=== PATIENT | female | born 1950 | race Caucasian/White ===

== ENCOUNTER 2020-01-07 07:48 | Outpatient (REF) | payer BC, MEDICARE, SELFPAY ==
[2020-01-07 11:45] LABS: Anion Gap 13 (12-20); Blood Urea Nitrogen 12 mg/dL (9-16); Carbon Dioxide 27 mmol/L (22-29); Chloride 105 mmol/L (96-108); Estimated Glomerular Filt Rate > 60; Glucose Random 89 mg/dL (60-115); Sodium 141 mmol/L (135-145)
== END 2020-01-07 07:49 | disposition home or self-care (01) ==
LOC: HO.HMGCLDS 07:48
PROVIDERS: PCP Internal Medicine; Visit Provider Internal Medicine
DX: I10 Essential (primary) hypertension (principal); G25.81 Restless legs syndrome; E78.9 Disorder of lipoprotein metabolism, unspecified; G47.9 Sleep disorder, unspecified
CPT/HCPCS: 80048

== ENCOUNTER 2020-01-22 07:37 | Outpatient (REF) | payer MEDICARE, SELFPAY ==
--- NOTE | 2020-01-22 07:40 | MM_ITS ---
EXAMINATION: MM SCREENING DIGITAL BREAST TOMOSYNTHESIS, BILATERAL CLINICAL INFORMATION: Screening. Asymptomatic. The lifetime risk of breast cancer based on the Tyrer-Cuzick Model is 3.9%. COMPARISON: Mammography: August 02, 2016 and studies dating back to January 03, 2003 TECHNIQUE: Digital breast tomosynthesis is performed in both the craniocaudal and mediolateral oblique views along with computer-aided detection (CAD). Synthesized 2D images are generated from the tomosynthesis. FINDINGS: The breasts are extremely dense, which lowers the sensitivity of mammography (ACR BI-RADS breast composition Category d). There are no significant masses, abnormal calcifications, or other abnormalities. There is multiplicity and bilaterality of stable calcifications. MM/MM tomosynthesis screening BI IMPRESSION: There are no significant changes from prior study. ASSESSMENT: BI-RADS 1: Negative RECOMMENDATION: Routine annual mammography screening. This patient's information was entered into a reminder system with a target due date for their next mammogram.
== END 2020-01-22 07:38 | disposition home or self-care (01) ==
LOC: HO.MAMMO 07:37
PROVIDERS: PCP Internal Medicine; Visit Provider Internal Medicine
DX: Z12.31 Encounter for screening mammogram for malignant neoplasm of breast (principal)
CPT/HCPCS: 77063; 77067

== ENCOUNTER 2020-07-30 08:44 | Outpatient (REF) | payer MEDICARE, SELFPAY ==
[2020-07-30 12:07] LABS: Alanine Aminotransferase 32 U/L (0-31); Albumin Level 4.6 g/dL (3.5-5.0); Alkaline Phosphatase 39 U/L (39-117); Anion Gap 15 (12-20); Aspartate Amino Transferase 21 U/L (5-31); Bilirubin Direct 0.3 mg/dL (0.0-0.5); Bilirubin Total 0.9 mg/dL (0.0-1.0); Blood Urea Nitrogen 24 mg/dL (9-16); Calcium 9.9 mg/dL (8.4-10.2); Carbon Dioxide 23 mmol/L (22-29); Chloride 104 mmol/L (96-108); Estimated Glomerular Filt Rate > 60; Glucose Random 115 mg/dL (60-115); Potassium 3.8 mmol/L (3.3-5.1); Sodium 138 mmol/L (135-145); Total Protein 7.4 g/dL (6.5-8.0)
[2020-07-31 06:51] LABS: LDL Cholesterol Direct 85 mg/dL (<100)
== END 2020-07-30 08:45 | disposition home or self-care (01) ==
LOC: HO.HMGCLDS 08:44
PROVIDERS: PCP Internal Medicine; Visit Provider Internal Medicine
DX: G25.81 Restless legs syndrome (principal); G47.9 Sleep disorder, unspecified; E78.9 Disorder of lipoprotein metabolism, unspecified; I10 Essential (primary) hypertension
CPT/HCPCS: 36415; 80048; 80076; 83721

== ENCOUNTER 2021-02-03 08:38 | Outpatient (REF) | payer MEDICARE, SELFPAY ==
[2021-02-03 11:48] LABS: MANUAL DIFF FLAG NO
[2021-02-03 11:53] LABS: Basophils Percent Auto 0.1 % (0-2); Eosinophils Absolute Auto 0.1 X10*3/uL (0.0-0.4); Eosinophils Percent Auto 1.6 % (0-4); Hematocrit 40.9 % (37.0-47.0); Hemoglobin 13.4 g/dl (12.0-16.0); Imm Gran Abs Auto 0.02 X10*3/uL (0.00-0.03); Imm Gran Pct Auto 0.3 % (0.0-0.4); Lymphocytes Percent Auto 28.9 % (20-40); Mean Corpuscular HGB Conc 32.8 g/dl (31.0-35.0); Mean Corpuscular Hemoglobin 29.5 pg (27.0-33.0); Mean Corpuscular Volume 90.1 fL (80.0-98.0); Mean Platelet Volume 11.5 fL (9.4-12.3); Monocytes Absolute Auto 0.6 X10*3/uL (0.1-1.2); Monocytes Percent Auto 7.9 % (2-11); Neutrophils Absolute Auto 4.3 x10*3/uL (2.0-8.3); Neutrophils Percent Auto 61.2 % (45-73); Platelet Count 209 X10*3/uL (160-400); Red Blood Count 4.54 X10*6/uL (4.20-5.50); Red Cell Distribution Width 13.3 % (11.0-16.0); White Blood Count 7.1 X10*3/uL (4.8-10.8)
[2021-02-03 12:29] LABS: Alanine Aminotransferase 23 U/L (0-31); Albumin Level 4.4 g/dL (3.5-5.0); Alkaline Phosphatase 40 U/L (39-117); Anion Gap 12 (12-20); Aspartate Amino Transferase 20 U/L (5-31); Bilirubin Total 1.1 mg/dL (0.0-1.0); Blood Urea Nitrogen 19 mg/dL (9-16); Calcium 9.2 mg/dL (8.4-10.2); Carbon Dioxide 24 mmol/L (22-29); Chloride 106 mmol/L (96-108); Estimated Glomerular Filt Rate > 60; Glucose Random 108 mg/dL (60-115); Potassium 4.1 mmol/L (3.3-5.1); Sodium 138 mmol/L (135-145); Total Protein 6.9 g/dL (6.5-8.0)
== END 2021-02-03 08:39 | disposition home or self-care (01) ==
LOC: HO.HMGCLDS 08:38
PROVIDERS: PCP Internal Medicine; Visit Provider Internal Medicine
DX: G47.9 Sleep disorder, unspecified (principal); E78.9 Disorder of lipoprotein metabolism, unspecified; G25.81 Restless legs syndrome; I10 Essential (primary) hypertension
CPT/HCPCS: 36415; 80053; 85025

== ENCOUNTER 2021-03-06 08:59 | Outpatient (REF) | payer MEDICARE, SELFPAY ==
--- NOTE | ~2021-03-06 | MM_ITS ---
EXAMINATION: BONE DENSITOMETRY CLINICAL INDICATION: Encounter for screening for osteoporosis. COMPARISON: Baseline BD dated 11/27/2009. TECHNIQUE: Using a [employer] DXA System (software version: 13.1) manufactured by [employer], dual-energy x-ray absorptiometry was performed of the lumbar spine and left hip. The images are of good technical quality. Summary results are attached. FINDINGS: AP SPINE L1-L4: Current: BMD 1.127 g/cm2, Z-score 0.4, T-score -0.4, normal, 8.2% increase from baseline (<5% change is not significant). Baseline: BMD 1.042 g/cm2. LEFT FEMUR, NECK: Current: BMD 0.854 g/cm2, Z-score -0.2, T-score -1.3, osteopenia. Baseline: BMD 0.942 g/cm2. LEFT FEMUR, TOTAL: Current: BMD 0.938 g/cm2, Z-score 0.3, T-score -0.6, normal, 6.2% decrease from baseline (<5% change is not significant). Baseline: BMD 1.000 g/cm2. IDENTIFIED RISK FACTORS: Secondary osteoporosis (early menopause). Hysterectomy. Bilateral oophorectomy. HISTORY OF FRACTURE: None listed. MEDICATIONS: None listed. MM/XR DEXA axial skeleton IMPRESSION: 1. DIAGNOSIS: Osteopenia based on the lowest T-score value of -1.3 in the femoral neck applying World Health Organization criteria. 2. 10-YEAR FRACTURE RISK PREDICTION, FRAX: Major osteoporotic fracture (clinical spine, forearm, hip or shoulder) 8.9%. Hip fracture 1.1%. 3. Treatment Recommendations: NOF guidelines recommend consideration for treatment in postmenopausal women and men age 50 and older presenting with the following: -A hip or vertebral (clinical or morphometric) fracture. -T-score less than or equal to -2.5 at the femoral neck or spine after appropriate evaluation to exclude secondary causes. -Low bone mass at the hip or spine and a 10-year fracture probability by FRAX of greater than or equal to 3% for hip fracture or greater than or equal to 20% for major osteoporotic fracture based on the [place] adapted WHO algorithm. 4. Other Recommendations: All treatment decisions require clinical judgment and consideration of individual patient factors, including patient preferences, comorbidities, previous drug use, risk factors not captured in the FRAX model (e.g. frailty, falls, vitamin D deficiency, increased bone turnover, interval significant decline in bone density) and possible under or overestimation of fracture risk by FRAX. Additional medical evaluation for secondary cause of low bone mineral density may be appropriate. FUTURE SCAN RECOMMENDATION: People with diagnosed cases of osteoporosis or at high risk for fracture should have regular bone mineral density tests. For patients eligible for Medicare, routine testing is allowed once every 2 years. The testing frequency can be increased to one year for patients who have rapidly progressing disease, those who are receiving or discontinuing medical therapy to restore bone mass, or have additional risk factors.
--- NOTE | ~2021-03-06 | MM_ITS ---
EXAMINATION: MM SCREENING DIGITAL BREAST TOMOSYNTHESIS, BILATERAL CLINICAL INFORMATION: Screening. Asymptomatic. The lifetime risk of breast cancer based on the Tyrer-Cuzick Model is 3%. COMPARISON: Mammography: 01/22/2020, 08/02/2016, 10/01/2013 TECHNIQUE: Digital breast tomosynthesis is performed in both the craniocaudal and mediolateral oblique views along with computer-aided detection (CAD). Synthesized 2D images are generated from the tomosynthesis. FINDINGS: The breasts are heterogeneously dense, which may obscure small masses (ACR BI-RADS breast composition Category c). Parenchymal pattern is similar to prior exams. No developing density or interval mass or architectural abnormality. There are scattered bilateral calcifications again seen, similar to previous exam. No significant changes. MM/MM tomosynthesis screening BI IMPRESSION: No mammographic evidence of malignancy. ASSESSMENT: BI-RADS 2: Benign RECOMMENDATION: Routine annual mammography screening. This patient's information was entered into a reminder system with a target due date for their next mammogram.
== END 2021-03-06 09:00 | disposition home or self-care (01) ==
LOC: HO.MAMMO 08:59
PROVIDERS: Visit Provider Internal Medicine
DX: Z12.31 Encounter for screening mammogram for malignant neoplasm of breast (principal); Z13.820 Encounter for screening for osteoporosis; M85.80 Other specified disorders of bone density and structure, unspecified site; Z78.0 Asymptomatic menopausal state; Z90.722 Acquired absence of ovaries, bilateral
CPT/HCPCS: 77063; 77067; 77080

== ENCOUNTER 2021-10-09 07:55 | Outpatient (REF) | payer MEDICARE, SELFPAY ==
[2021-10-09 12:24] LABS: Alanine Aminotransferase 30 U/L (0-31); Albumin Level 4.4 g/dL (3.5-5.0); Alkaline Phosphatase 37 U/L (39-117); Anion Gap 10 (12-20); Aspartate Amino Transferase 23 U/L (5-31); Bilirubin Total 0.9 mg/dL (0.0-1.0); Blood Urea Nitrogen 15 mg/dL (9-16); Calcium 9.8 mg/dL (8.4-10.2); Carbon Dioxide 27 mmol/L (22-29); Chloride 106 mmol/L (96-108); Estimated Glomerular Filt Rate > 60; Glucose Random 103 mg/dL (60-115); Potassium 4.2 mmol/L (3.3-5.1); Sodium 139 mmol/L (135-145); Total Protein 7.1 g/dL (6.5-8.0)
== END 2021-10-09 07:56 | disposition home or self-care (01) ==
LOC: HO.HMGCLDS 07:55
PROVIDERS: Visit Provider Internal Medicine
DX: I10 Essential (primary) hypertension (principal); E78.9 Disorder of lipoprotein metabolism, unspecified; G25.81 Restless legs syndrome; G47.9 Sleep disorder, unspecified; M85.80 Other specified disorders of bone density and structure, unspecified site; E66.09 Other obesity due to excess calories
CPT/HCPCS: 36415; 80053

== ENCOUNTER 2022-04-27 12:08 | Outpatient (REF) | payer MEDICARE, SELFPAY ==
--- NOTE | ~2022-04-27 | MM_ITS ---
EXAMINATION: MM SCREENING DIGITAL BREAST TOMOSYNTHESIS, BILATERAL CLINICAL INFORMATION: Screening. Asymptomatic. The lifetime risk of breast cancer based on the Tyrer-Cuzick Model is 2.5%. COMPARISON: Mammography: March 06, 2021 and studies dating back to October 01, 2013 TECHNIQUE: Digital breast tomosynthesis is performed in both the craniocaudal and mediolateral oblique views along with computer-aided detection (CAD). Synthesized 2D images are generated from the tomosynthesis. FINDINGS: The breasts are heterogeneously dense, which may obscure small masses (ACR BI-RADS breast composition Category c). There are no significant masses, abnormal calcifications, or other abnormalities. There is multiplicity and bilaterality of calcifications. MM/MM tomosynthesis screening BI IMPRESSION: No significant changes from prior exam. ASSESSMENT: BI-RADS 1: Negative RECOMMENDATION: Routine annual mammography screening. This patient's information was entered into a reminder system with a target due date for their next mammogram.
== END 2022-04-27 12:09 | disposition home or self-care (01) ==
LOC: HO.MAMMO 12:08
PROVIDERS: PCP Internal Medicine; Visit Provider Internal Medicine
DX: Z12.31 Encounter for screening mammogram for malignant neoplasm of breast (principal)
CPT/HCPCS: 77063; 77067

== ENCOUNTER 2022-06-11 10:55 | Outpatient (REF) | payer MEDICARE, SELFPAY ==
[2022-06-11 13:58] LABS: MANUAL DIFF FLAG NO
[2022-06-11 14:05] LABS: Basophils Percent Auto 0.3 % (0-2); Eosinophils Absolute Auto 0.1 X10*3/uL (0.0-0.4); Eosinophils Percent Auto 1.1 % (0-4); Hematocrit 40.6 % (37.0-47.0); Hemoglobin 13.5 g/dl (12.0-16.0); Imm Gran Abs Auto 0.02 X10*3/uL (0.00-0.03); Imm Gran Pct Auto 0.3 % (0.0-0.4); Lymphocytes Percent Auto 27.7 % (20-40); Mean Corpuscular HGB Conc 33.3 g/dl (31.0-35.0); Mean Corpuscular Hemoglobin 30.3 pg (27.0-33.0); Mean Corpuscular Volume 91.2 fL (80.0-98.0); Mean Platelet Volume 11.1 fL (9.4-12.3); Monocytes Absolute Auto 0.6 X10*3/uL (0.1-1.2); Monocytes Percent Auto 8.3 % (2-11); Neutrophils Absolute Auto 4.5 x10*3/uL (2.0-8.3); Neutrophils Percent Auto 62.3 % (45-73); Platelet Count 212 X10*3/uL (160-400); Red Blood Count 4.45 X10*6/uL (4.20-5.50); Red Cell Distribution Width 13.3 % (11.0-16.0); White Blood Count 7.2 X10*3/uL (4.8-10.8)
[2022-06-11 16:25] LABS: Alanine Aminotransferase 25 U/L (0-31); Albumin Level 4.4 g/dL (3.5-5.0); Alkaline Phosphatase 41 U/L (39-117); Anion Gap 14 (12-20); Aspartate Amino Transferase 19 U/L (5-31); Bilirubin Total 0.8 mg/dL (0.0-1.0); Blood Urea Nitrogen 22 mg/dL (9-16); Carbon Dioxide 24 mmol/L (22-29); Chloride 108 mmol/L (96-108); Estimated Glomerular Filt Rate > 60; Glucose Random 109 mg/dL (60-115); Sodium 142 mmol/L (135-145)
[2022-06-13 10:08] LABS: LDL Cholesterol Direct 91 mg/dL (<100)
== END 2022-06-11 10:56 | disposition home or self-care (01) ==
LOC: HO.HMGCLDS 10:55
PROVIDERS: PCP Internal Medicine; Visit Provider Internal Medicine
DX: Z00.01 Encounter for general adult medical examination with abnormal findings (principal); G25.81 Restless legs syndrome; G47.9 Sleep disorder, unspecified; I10 Essential (primary) hypertension; E78.9 Disorder of lipoprotein metabolism, unspecified
CPT/HCPCS: 36415; 80053; 83721; 85025

== ENCOUNTER 2022-11-03 12:40 | Outpatient (AMB) | payer MEDICARE, SELFPAY ==
[2022-11-03 12:42] VITALS: BP 128/68; PULSE 65; O2SAT 98; BMI 35.2
--- NOTE | 2022-11-03 12:42 | MHC.PC.OV ---
Vital Signs 11/03/22 12:42 Height 5 ft 4 in Weight 205 lb BMI 35.2 BP 128/68 Blood Pressure Location Lt brachial Position Sitting Pulse 65 Pulse Source Pulse Oximeter Pulse Oximetry (%) 98 Oxygen Delivery Method Room Air Intake Visit Reasons: 3 month f/u Allergies No Known Allergies [No Known Allergies*] Allergy (Verified 11/03/22 12:43) Medication List - Last Reconciled 11/03/22 by Murali Jaimes MD amlodipine 5 mg PO DAILY 90 days atenolol 100 mg PO DAILY 90 days losartan-hydrochlorothiazide 100-12.5 mg 1 tab PO DAILY 90 days pramipexole 0.5 mg PO BEDTIME simvastatin 20 mg PO BEDTIME zolpidem 10 mg PO BEDTIME PRN 90 days Tobacco use date assessed: 11/03/22 Fall risk assessment: No Falls in past year Last assessed Fall Risk: 11/03/22 Dental Screening Dental Screen Date: 11/03/22 Did you have a dental visit in the last 12 months?: Yes Did you have a dental problem in the last 6 months where you did not have access to dental care?: No Was dental information given to patient?: No HPI 3 month f/u HPI Details Patient is 72-year-old female came in today for her 3 month follow-up visit. Patient had labs done May of this year she is due for another set of labs Continue to take care of her significant other at home Difficulty sleeping:? Patient is currently taking Ambien at night, patient is complying with the treatment and comes in every 3 months for follow-up She wanted the script sent to a different pharmacy [facility] which I have Hypertension:? Patient is on losartan hydrochlorothiazide 100-12.5 and amlodipine 5 mg once a day.? Blood pressure is stable patient is tolerating medication. Restless leg syndrome:? Continue pramipexole 0.5 mg before bedtime Lipid disorder:? Patient is on simvastatin 20 mg and diet-controlled.? Osteopenia: Continue weight-bearing exercises BMI is elevated above 30 need to lose weight Follow-up 3 months [facility] Medical History Difficulty sleeping Hypertension, essential Lipid disorder Restless leg syndrome Surgical History History of appendectomy History of colonoscopy History of hysterectomy History of surgery Family History Father HTN (hypertension) Cancer Mother HTN (hypertension) Bone cancer Brother Skin cancer Maternal Grandfather No problems noted. Maternal Grandmother No problems noted. Paternal Grandfather No problems noted. Paternal Grandmother No problems noted. Sister No problems noted. Son No problems noted. Social History Housing: Condominium Patient Tobacco Use Status: Former Tobacco user (quit 50 years ago ) Years Smoked: 1 year e-Cigarette/Vaping Use: Never Used Current occupational status: retired Cognitive needs: No Hearing needs: No Vision needs: No Questionnaire Thrive Questionnaire Date Thrive assessed: 04/02/22 VON-7 AMB Questionnaire VON-7 Date VON - 7 assessed: 04/02/22 Source: Developed by Drs. Israel Gutierrez, Cayla Enriquez, Valdez Cowart and colleagues, with an educational joão from [employer]. Review of Systems Const Denies chills and Denies fever(s) ENT Denies epistaxis and Denies nasal discharge Card Denies chest pain Resp Denies chest congestion, Denies cough and Denies hemoptysis GI Denies diarrhea and Denies nausea Skin/Breast Denies rash Neuro Reports no additional complaints Psych Reports no additional complaints Endo Reports no additional complaints Physical exam (Primary Care) Vital Signs: Last Vital Signs Pulse 65 11/03/22 12:42 BP 128/68 11/03/22 12:42 Pulse Ox 98 11/03/22 12:42 Oxygen Delivery Method Room Air 11/03/22 12:42 BMI result Body Mass Index 35.2 Tobacco/Smoking Status: Tobacco use Status Tobacco use date assessed 11/03/22 11/03/22 12:43 Patient Tobacco Use Status Former Tobacco user (quit 50 11/03/22 12:43 years ago ) e-Cigarette/Vaping Use Never Used 11/03/22 12:43 Thrive Assessment: Date of Thrive Assessment Date Thrive assessed 04/02/22 11/03/22 12:43 Const General: cooperative, comfortable and no acute distress Orientation/consciousness: patient oriented x3 HENMT Head: Yes normocephalic Eyes General: appearance normal, both eyes and all related structures Neck Neck: Yes supple Resp Effort & Inspection: normal respiratory effort, no cough and no stridor Cardio Rhythm: regular rhythm Heart sounds: S1 normal heart sound present and S2 normal heart sound present Skin General skin exam: turgor normal Neuro General: patient oriented x3, tone normal and moves all extremities Extrem Right lower extremity: no edema Left lower extremity: no edema Assessment and Plan Assessment & Plan (1) Hypertension, essential: Code(s): I10 - Essential (primary) hypertension (2) Lipid disorder: Code(s): E78.9 - Disorder of lipoprotein metabolism, unspecified (3) Restless leg syndrome: Code(s): G25.81 - Restless legs syndrome (4) Difficulty sleeping: Code(s): G47.9 - Sleep disorder, unspecified (5) Obesity due to excess calories: Code(s): E66.09 - Other obesity due to excess calories (6) Osteopenia: Code(s): M85.80 - Other specified disorders of bone density and structure, unspecified site Plan Patient is 72-year-old female came in today for her 3 month follow-up visit. Patient had labs done May of this year she is due for another set of labs Continue to take care of her significant other at home Difficulty sleeping:? Patient is currently taking Ambien at night, patient is complying with the treatment and comes in every 3 months for follow-up She wanted the script sent to a different pharmacy today [facility] which I have Hypertension:? Patient is on losartan hydrochlorothiazide 100-12.5 and amlodipine 5 mg once a day.? Blood pressure is stable patient is tolerating medication. Restless leg syndrome:? Continue pramipexole 0.5 mg before bedtime Lipid disorder:? Patient is on simvastatin 20 mg and diet-controlled.? Osteopenia: Continue weight-bearing exercises BMI is elevated above 30 need to lose weight Follow-up 3 months Orders: Orders Comprehensive Met. Panel Today E66.09 - Other obesity due to excess calories, E78.9 - Disorder of lipoprotein metabolism, unspecified, G25.81 - Restless legs syndrome, G47.9 - Sleep disorder, unspecified, I10 - Essential (primary) hypertension, M85.80 - Other specified disorders of bone density and structure, unspecified site Medications: Refilled amlodipine 5 mg PO DAILY 90 days 90 tabs 0RF atenolol 100 mg PO DAILY 90 days 90 tabs 0RF losartan-hydrochlorothiazide 100-12.5 mg 1 tab PO DAILY 90 days 90 tabs 0RF pramipexole 0.5 mg PO BEDTIME 90 tabs 1RF simvastatin 20 mg PO BEDTIME 90 tabs 1RF zolpidem 10 mg PO BEDTIME 90 days PRN 90 tabs 0RF insomnia Coding Level of Care Code Est Pt Level 4 (42209) Diagnoses Hypertension, essential I10 Lipid disorder E78.9 Restless leg syndrome G25.81 Difficulty sleeping G47.9 Obesity due to excess calories E66.09 Osteopenia M85.80
== END 2022-11-03 13:37 | disposition home or self-care (01) ==
PROVIDERS: Visit Provider Internal Medicine
DX: I10 Essential (primary) hypertension (principal); E78.9 Disorder of lipoprotein metabolism, unspecified; G25.81 Restless legs syndrome; Z68.35 Body mass index [BMI] 35.0-35.9, adult; G47.9 Sleep disorder, unspecified; E66.09 Other obesity due to excess calories; M85.80 Other specified disorders of bone density and structure, unspecified site
CPT/HCPCS: 99214

== ENCOUNTER 2022-11-09 09:22 | Outpatient (REF) | payer MEDICARE, SELFPAY ==
[2022-11-09 12:11] LABS: Alanine Aminotransferase 32 U/L (0-31); Albumin Level 4.4 g/dL (3.5-5.0); Alkaline Phosphatase 40 U/L (39-117); Anion Gap 14 (12-20); Aspartate Amino Transferase 21 U/L (5-31); Bilirubin Total 0.7 mg/dL (0.0-1.0); Blood Urea Nitrogen 17 mg/dL (9-16); Calcium 9.8 mg/dL (8.4-10.2); Carbon Dioxide 24 mmol/L (22-29); Chloride 106 mmol/L (96-108); Estimated Glomerular Filt Rate > 60; Glucose Random 100 mg/dL (60-115); Potassium 3.6 mmol/L (3.3-5.1); Sodium 140 mmol/L (135-145); Total Protein 7.5 g/dL (6.5-8.0)
== END 2022-11-09 09:23 | disposition home or self-care (01) ==
LOC: HO.HMGCLDS 09:22
PROVIDERS: PCP Internal Medicine; Visit Provider Internal Medicine
DX: E66.09 Other obesity due to excess calories (principal); E78.9 Disorder of lipoprotein metabolism, unspecified; G25.81 Restless legs syndrome; G47.9 Sleep disorder, unspecified; I10 Essential (primary) hypertension; M85.80 Other specified disorders of bone density and structure, unspecified site
CPT/HCPCS: 36415; 80053

== ENCOUNTER 2023-01-28 10:37 | Outpatient (AMB) | payer MEDICARE, SELFPAY ==
[2023-01-28 10:49] VITALS: BP 142/86; PULSE 51; O2SAT 98; BMI 34.7
--- NOTE | 2023-01-28 10:49 | MHC.PC.OV ---
Vital Signs 01/28/23 10:49 Height 5 ft 4 in Weight 202 lb 4 oz BMI 34.7 BP 142/86 H Blood Pressure Location Rt brachial Position Sitting Pulse 51 Pulse Source Pulse Oximeter Pulse Oximetry (%) 98 Oxygen Delivery Method Room Air Intake Visit Reasons: 3 Month Follow Up~ Allergies No Known Allergies [No Known Allergies*] Allergy (Verified 01/28/23 10:51) Medication List - Last Reconciled 01/28/23 by Murali Jaimes MD amlodipine 5 mg PO DAILY 90 days atenolol 100 mg PO DAILY 90 days losartan-hydrochlorothiazide 100-12.5 mg 1 tab PO DAILY 90 days pramipexole 0.5 mg PO BEDTIME simvastatin 20 mg PO BEDTIME zolpidem 10 mg PO BEDTIME PRN 90 days Tobacco use date assessed: 01/28/23 Fall risk assessment: No Falls in past year Last assessed Fall Risk: 01/28/23 Dental Screening Dental Screen Date: 01/28/23 Did you have a dental visit in the last 12 months?: Yes Did you have a dental problem in the last 6 months where you did not have access to dental care?: No Was dental information given to patient?: Patient has dentist HPI 3 Month Follow Up~ HPI Details Patient is 72-year-old female came in today for her 3 month follow-up visit. Obesity: Patient's BMI is 34.7, she is requesting a script of Semaglutide, she said that she knows how to give herself injection And she is aware of side effects of medication including risk of thyroid cancer pancreatitis and low sugar. Patient will monitor her weight at home, if there is any problem she will stop the medication and get back to me. Difficulty sleeping:? Patient is currently taking Ambien at night, patient is complying with the treatment and comes in every 3 months for follow-up Hypertension:? Patient is on losartan hydrochlorothiazide 100-12.5 and amlodipine 5 mg once a day.? Blood pressure is stable at home it is running around 04/10/2029 Today it is slightly elevated in the office Restless leg syndrome:? Continue pramipexole 0.5 mg before bedtime Lipid disorder:? Patient is on simvastatin 20 mg and diet-controlled.? Osteopenia: Continue weight-bearing exercises Labs are needed before visit Follow-up 3 months [facility] Medical History Difficulty sleeping Restless leg syndrome Lipid disorder Hypertension, essential Surgical History History of colonoscopy History of surgery History of appendectomy History of hysterectomy Family History Father HTN (hypertension) Cancer Mother HTN (hypertension) Bone cancer Brother Skin cancer Maternal Grandfather No problems noted. Maternal Grandmother No problems noted. Paternal Grandfather No problems noted. Paternal Grandmother No problems noted. Sister No problems noted. Son No problems noted. Social History Housing: Condominium Patient Tobacco Use Status: Former Tobacco user (quit 50 years ago ) Years Smoked: 1 year e-Cigarette/Vaping Use: Never Used Current occupational status: retired Cognitive needs: No Hearing needs: No Vision needs: No Questionnaire Thrive Questionnaire Date Thrive assessed: 04/02/22 VON-7 AMB Questionnaire VON-7 Date VON - 7 assessed: 04/02/22 Source: Developed by Drs. Israel Gutierrez, Cayla Enriquez, Valdez Cowart and colleagues, with an educational joão from [employer]. Review of Systems Const Denies chills and Denies fever(s) ENT Denies epistaxis and Denies nasal discharge Card Denies chest pain Resp Denies chest congestion, Denies cough and Denies hemoptysis GI Denies diarrhea and Denies nausea Skin/Breast Denies rash Neuro Reports no additional complaints Psych Reports no additional complaints Endo Reports no additional complaints Physical exam (Primary Care) Vital Signs: Last Vital Signs Pulse 51 01/28/23 10:49 BP 142/86 H 01/28/23 10:49 Pulse Ox 98 01/28/23 10:49 Oxygen Delivery Method Room Air 01/28/23 10:49 BMI result Body Mass Index 34.7 Tobacco/Smoking Status: Tobacco use Status Tobacco use date assessed 01/28/23 01/28/23 10:53 Patient Tobacco Use Status Former Tobacco user (quit 50 01/28/23 10:53 years ago ) e-Cigarette/Vaping Use Never Used 01/28/23 10:53 Thrive Assessment: Date of Thrive Assessment Date Thrive assessed 04/02/22 01/28/23 10:53 Const General: cooperative, comfortable and no acute distress Orientation/consciousness: patient oriented x3 HENMT Head: Yes normocephalic Eyes General: appearance normal, both eyes and all related structures Neck Neck: Yes supple Resp Effort & Inspection: normal respiratory effort, no cough and no stridor Cardio Rhythm: regular rhythm Heart sounds: S1 normal heart sound present and S2 normal heart sound present Skin General skin exam: turgor normal Neuro General: patient oriented x3, tone normal and moves all extremities Extrem Right lower extremity: no edema Left lower extremity: no edema Assessment and Plan Assessment & Plan (1) Obesity due to excess calories: Code(s): E66.09 - Other obesity due to excess calories Qualifiers: Body mass index: BMI 34.0-34.9 Obesity classification: adult class 1 (BMI 30 - 34.9) Serious obesity comorbidity presence: with serious comorbidity Qualified Code(s): E66.09 - Other obesity due to excess calories; Z68.34 - Body mass index [BMI] 34.0-34.9, adult (2) Hypertension, essential: Code(s): I10 - Essential (primary) hypertension (3) Lipid disorder: Code(s): E78.9 - Disorder of lipoprotein metabolism, unspecified (4) Restless leg syndrome: Code(s): G25.81 - Restless legs syndrome (5) Difficulty sleeping: Code(s): G47.9 - Sleep disorder, unspecified (6) Osteopenia: Code(s): M85.80 - Other specified disorders of bone density and structure, unspecified site Qualifiers: Osteopenia location: lumbar spine Qualified Code(s): M85.88 - Other specified disorders of bone density and structure, other site Plan Patient is 72-year-old female came in today for her 3 month follow-up visit. Obesity: Patient's BMI is 34.7, she is requesting a script of Semaglutide, she said that she knows how to give herself injection And she is aware of side effects of medication including risk of thyroid cancer pancreatitis and low sugar. Patient will monitor her weight at home, if there is any problem she will stop the medication and get back to me. Difficulty sleeping:? Patient is currently taking Ambien at night, patient is complying with the treatment and comes in every 3 months for follow-up Hypertension:? Patient is on losartan hydrochlorothiazide 100-12.5 and amlodipine 5 mg once a day.? Blood pressure is stable at home it is running around 04/10/2029 Today it is slightly elevated in the office Restless leg syndrome:? Continue pramipexole 0.5 mg before bedtime Lipid disorder:? Patient is on simvastatin 20 mg and diet-controlled.? Osteopenia: Continue weight-bearing exercises Labs are needed before visit Follow-up 3 months Orders: Orders Complete Blood Count Auto Diff 2 Months E66.09 - Other obesity due to excess calories, E78.9 - Disorder of lipoprotein metabolism, unspecified, G25.81 - Restless legs syndrome, G47.9 - Sleep disorder, unspecified, I10 - Essential (primary) hypertension, M85.80 - Other specified disorders of bone density and structure, unspecified site Comprehensive Met. Panel 2 Months E66.09 - Other obesity due to excess calories, E78.9 - Disorder of lipoprotein metabolism, unspecified, G25.81 - Restless legs syndrome, G47.9 - Sleep disorder, unspecified, I10 - Essential (primary) hypertension, M85.80 - Other specified disorders of bone density and structure, unspecified site TSH reflex Free T4 2 Months E66.09 - Other obesity due to excess calories, E78.9 - Disorder of lipoprotein metabolism, unspecified, G25.81 - Restless legs syndrome, G47.9 - Sleep disorder, unspecified, I10 - Essential (primary) hypertension, M85.80 - Other specified disorders of bone density and structure, unspecified site LDL Cholesterol Direct 2 Months E66.09 - Other obesity due to excess calories, E78.9 - Disorder of lipoprotein metabolism, unspecified, G25.81 - Restless legs syndrome, G47.9 - Sleep disorder, unspecified, I10 - Essential (primary) hypertension, M85.80 - Other specified disorders of bone density and structure, unspecified site Lipase 2 Months E66.09 - Other obesity due to excess calories, E78.9 - Disorder of lipoprotein metabolism, unspecified, G25.81 - Restless legs syndrome, G47.9 - Sleep disorder, unspecified, I10 - Essential (primary) hypertension, M85.80 - Other specified disorders of bone density and structure, unspecified site Medications: New semaglutide for 4 weeks 0.25 mg (0.368 mL) subcut QWEEK 2 mL 0RF 30 days Coding Level of Care Code Est Pt Level 4 (85047) Diagnoses Class 1 obesity due to excess calories with serious comorbidity and body mass index (BMI) of 34.0 to 34.9 in adult E66.09; Z68.34 Body mass index: BMI 34.0-34.9 Obesity classification: adult class 1 (BMI 30 - 34.9) Serious obesity comorbidity presence: with serious comorbidity Hypertension, essential I10 Lipid disorder E78.9 Restless leg syndrome G25.81 Difficulty sleeping G47.9 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 Osteopenia location: lumbar spine
== END 2023-01-28 13:19 | disposition home or self-care (01) ==
PROVIDERS: PCP Internal Medicine; Visit Provider Internal Medicine
DX: E66.09 Other obesity due to excess calories (principal); Z68.34 Body mass index [BMI] 34.0-34.9, adult; I10 Essential (primary) hypertension; E78.9 Disorder of lipoprotein metabolism, unspecified; G25.81 Restless legs syndrome; G47.9 Sleep disorder, unspecified; M85.88 Other specified disorders of bone density and structure, other site
CPT/HCPCS: 99214

== ENCOUNTER 2023-06-15 14:33 | Outpatient (AMB) | payer MEDICARE, SELFPAY ==
[2023-06-15 14:35] VITALS: BP 138/84; PULSE 53; O2SAT 96; BMI 34.3
--- NOTE | 2023-06-15 14:35 | MHC.PC.OV ---
Vital Signs 06/15/23 14:35 Height 5 ft 4 in Weight 200 lb BMI 34.3 BP 138/84 Blood Pressure Location Rt brachial Position Sitting Pulse 53 Pulse Source Pulse Oximeter Pulse Oximetry (%) 96 Oxygen Delivery Method Room Air Intake Visit Reasons: 4 Month F/U ~ Allergies No Known Allergies [No Known Allergies*] Allergy (Verified 06/15/23 14:36) Medication List - Last Reconciled 06/15/23 by Murali Jaimes MD amlodipine 5 mg PO DAILY 90 days atenolol 100 mg PO DAILY 90 days losartan-hydrochlorothiazide 100-12.5 mg 1 tab PO DAILY 90 days pramipexole 0.5 mg PO BEDTIME simvastatin 20 mg PO BEDTIME Tobacco use date assessed: 06/15/23 Fall risk assessment: No Falls in past year Last assessed Fall Risk: 06/15/23 Dental Screening Dental Screen Date: 06/15/23 Did you have a dental visit in the last 12 months?: Yes Did you have a dental problem in the last 6 months where you did not have access to dental care?: No Was dental information given to patient?: Patient has dentist HPI 4 Month F/U ~ HPI Details Patient is 72-year-old female came in today for follow-up appointment Patient ran out on zolpidem that she take to sleep at night As she to reschedule her appointment and could not come in for medication refill I have sent the refill for the patient Patient never took semaglutide injection as pharmacy/insurance did not cover it BMI continued to be elevated at 34.3, she says that I can try sending it again as she has called insurance company and they said they will try to approve it Hypertension:? Patient is on losartan hydrochlorothiazide 100-12.5 and amlodipine 5 mg once a day.? Blood pressure is stable Restless leg syndrome:? Continue pramipexole 0.5 mg before bedtime Lipid disorder:? Patient is on simvastatin 20 mg and diet-controlled.? Osteopenia: Continue weight-bearing exercises Labs were supposed to be done before visit patient forgot Follow-up 3 months [facility] Medical History Difficulty sleeping Restless leg syndrome Lipid disorder Hypertension, essential Surgical History History of colonoscopy History of surgery History of appendectomy History of hysterectomy Family History Father HTN (hypertension) Cancer Mother HTN (hypertension) Bone cancer Brother Skin cancer Maternal Grandfather No problems noted. Maternal Grandmother No problems noted. Paternal Grandfather No problems noted. Paternal Grandmother No problems noted. Sister No problems noted. Son No problems noted. Social History Housing: Condominium Patient Tobacco Use Status: Former Tobacco user (quit 50 years ago ) Years Smoked: 1 year e-Cigarette/Vaping Use: Never Used service: No Current occupational status: retired Cognitive needs: No Hearing needs: No Vision needs: No Questionnaire Thrive Questionnaire Date Thrive assessed: 04/02/22 AUDIT C Alcohol Use Questionnaire (AUDIT-C) 1. How often do you have a drink containing alcohol?: 2-4 times a month 2. How many drinks containing alcohol do you have on a typical day when you are drinking?: 1 or 2 3. How often do you have six or more drinks on one occasion?: Never Total Score: 2 Score Reviewed/Action Taken: Yes VON-7 AMB Questionnaire VON-7 Date VON - 7 assessed: 04/02/22 Source: Developed by Drs. Israel Gutierrez, Cayla Enriquez, Valdez Cowart and colleagues, with an educational joão from [employer]. Review of Systems Const Denies chills and Denies fever(s) ENT Denies epistaxis and Denies nasal discharge Card Denies chest pain Resp Denies chest congestion, Denies cough and Denies hemoptysis GI Denies diarrhea and Denies nausea Skin/Breast Denies rash Neuro Reports no additional complaints Psych Reports no additional complaints Endo Reports no additional complaints Physical exam (Primary Care) Vital Signs: Last Vital Signs Pulse 53 06/15/23 14:35 BP 138/84 06/15/23 14:35 Pulse Ox 96 06/15/23 14:35 Oxygen Delivery Method Room Air 06/15/23 14:35 BMI result Body Mass Index 34.3 Tobacco/Smoking Status: Tobacco use Status Tobacco use date assessed 06/15/23 06/15/23 14:41 Patient Tobacco Use Status Former Tobacco user (quit 50 06/15/23 14:41 years ago ) e-Cigarette/Vaping Use Never Used 06/15/23 14:41 Thrive Assessment: Date of Thrive Assessment Date Thrive assessed 04/02/22 06/15/23 14:41 Const General: cooperative, comfortable and no acute distress Orientation/consciousness: patient oriented x3 HENMT Head: Yes normocephalic Eyes General: appearance normal, both eyes and all related structures Neck Neck: Yes supple Resp Effort & Inspection: normal respiratory effort, no cough and no stridor Cardio Rhythm: regular rhythm Heart sounds: S1 normal heart sound present and S2 normal heart sound present Skin General skin exam: turgor normal Neuro General: patient oriented x3, tone normal and moves all extremities Extrem Right lower extremity: no edema Left lower extremity: no edema Assessment and Plan Assessment & Plan (1) Hypertension, essential: Code(s): I10 - Essential (primary) hypertension (2) Lipid disorder: Code(s): E78.9 - Disorder of lipoprotein metabolism, unspecified (3) Restless leg syndrome: Code(s): G25.81 - Restless legs syndrome (4) Difficulty sleeping: Code(s): G47.9 - Sleep disorder, unspecified (5) Obesity due to excess calories: Code(s): E66.09 - Other obesity due to excess calories Qualifiers: Obesity classification: adult class 1 (BMI 30 - 34.9) Serious obesity comorbidity presence: with serious comorbidity Body mass index: BMI 34.0-34.9 Qualified Code(s): E66.09 - Other obesity due to excess calories; Z68.34 - Body mass index [BMI] 34.0-34.9, adult (6) Osteopenia: Code(s): M85.80 - Other specified disorders of bone density and structure, unspecified site Qualifiers: Osteopenia location: lumbar spine Qualified Code(s): M85.88 - Other specified disorders of bone density and structure, other site Plan Patient is 72-year-old female came in today for follow-up appointment Patient ran out on zolpidem that she take to sleep at night As she to reschedule her appointment and could not come in for medication refill I have sent the refill for the patient Patient never took semaglutide injection as pharmacy/insurance did not cover it BMI continued to be elevated at 34.3, she says that I can try sending it again as she has called insurance company and they said they will try to approve it Hypertension:? Patient is on losartan hydrochlorothiazide 100-12.5 and amlodipine 5 mg once a day.? Blood pressure is stable Restless leg syndrome:? Continue pramipexole 0.5 mg before bedtime Lipid disorder:? Patient is on simvastatin 20 mg and diet-controlled.? Osteopenia: Continue weight-bearing exercises Labs were supposed to be done before visit patient forgot Follow-up 3 months Medications: New semaglutide (weight loss) (Daphnie) administer weeks 1 through 4 of therapy 0.25 mg (0.5 mL) subcut QWEEK 2 mL 6RF E66.09 - Other obesity due to excess calories, E78.9 - Disorder of lipoprotein metabolism, unspecified, I10 - Essential (primary) hypertension Refilled zolpidem 10 mg PO BEDTIME 90 days PRN 90 tabs 0RF insomnia Coding Level of Care Code Est Pt Level 4 (90445) Diagnoses Hypertension, essential I10 Lipid disorder E78.9 Restless leg syndrome G25.81 Difficulty sleeping G47.9 Class 1 obesity due to excess calories with serious comorbidity and body mass index (BMI) of 34.0 to 34.9 in adult E66.09; Z68.34 Obesity classification: adult class 1 (BMI 30 - 34.9) Serious obesity comorbidity presence: with serious comorbidity Body mass index: BMI 34.0-34.9 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 Osteopenia location: lumbar spine
== END 2023-06-15 15:38 | disposition home or self-care (01) ==
PROVIDERS: PCP Internal Medicine; Visit Provider Internal Medicine
DX: I10 Essential (primary) hypertension (principal); E78.9 Disorder of lipoprotein metabolism, unspecified; G25.81 Restless legs syndrome; G47.9 Sleep disorder, unspecified; E66.09 Other obesity due to excess calories; Z68.34 Body mass index [BMI] 34.0-34.9, adult; M85.88 Other specified disorders of bone density and structure, other site
CPT/HCPCS: 99214

== ENCOUNTER 2023-08-25 12:26 | Outpatient (REF) | payer MEDICARE, SELFPAY ==
[2023-08-25 15:58] LABS: MANUAL DIFF FLAG NO
[2023-08-25 16:18] LABS: Basophils Percent Auto 0.2 % (0-2); Eosinophils Absolute Auto 0.1 X10*3/uL (0.0-0.4); Hematocrit 39.7 % (37.0-47.0); Hemoglobin 13.1 g/dl (12.0-16.0); Imm Gran Abs Auto 0.03 X10*3/uL (0.00-0.03); Imm Gran Pct Auto 0.4 % (0.0-0.4); Lymphocytes Percent Auto 25.1 % (20-40); Mean Corpuscular Hemoglobin 30.3 pg (27.0-33.0); Mean Corpuscular Volume 91.7 fL (80.0-98.0); Monocytes Absolute Auto 0.6 X10*3/uL (0.1-1.2); Monocytes Percent Auto 7.5 % (2-11); Neutrophils Absolute Auto 5.3 x10*3/uL (2.0-8.3); Neutrophils Percent Auto 65.8 % (45-73); Platelet Count 184 X10*3/uL (160-400); Red Blood Count 4.33 X10*6/uL (4.20-5.50); Red Cell Distribution Width 13.2 % (11.0-16.0)
[2023-08-25 16:47] LABS: Alanine Aminotransferase 40 U/L (0-31); Albumin Level 4.4 g/dL (3.5-5.0); Alkaline Phosphatase 42 U/L (39-117); Anion Gap 12 (12-20); Aspartate Amino Transferase 29 U/L (5-31); Bilirubin Total 0.7 mg/dL (0.0-1.0); Blood Urea Nitrogen 15 mg/dL (9-16); Calcium 9.9 mg/dL (8.4-10.2); Carbon Dioxide 27 mmol/L (22-29); Chloride 106 mmol/L (96-108); Estimated Glomerular Filt Rate > 60; Glucose Random 101 mg/dL (60-115); Lipase 14 U/L (8-78); Potassium 3.9 mmol/L (3.3-5.1); Sodium 141 mmol/L (135-145); Total Protein 7.2 g/dL (6.5-8.0)
[2023-08-25 16:53] LABS: TSH reflex Free T4 1.08 uIU/mL (0.32-4.0)
[2023-08-27 09:43] LABS: LDL Cholesterol Direct 61 mg/dL (<100)
== END 2023-08-25 12:27 | disposition home or self-care (01) ==
LOC: HO.HMGCLDS 12:26
PROVIDERS: PCP Internal Medicine; Visit Provider Internal Medicine
DX: M85.80 Other specified disorders of bone density and structure, unspecified site (principal); G47.9 Sleep disorder, unspecified; G25.81 Restless legs syndrome; E78.9 Disorder of lipoprotein metabolism, unspecified; I10 Essential (primary) hypertension; E66.09 Other obesity due to excess calories
CPT/HCPCS: 36415; 80053; 83690; 83721; 84443; 85025

== ENCOUNTER 2023-08-30 09:55 | Outpatient (REF) | payer MEDICARE, SELFPAY ==
--- NOTE | ~2023-08-30 | MM_ITS ---
EXAMINATION: MM SCREENING DIGITAL BREAST TOMOSYNTHESIS, BILATERAL CLINICAL INFORMATION: Screening. Asymptomatic. COMPARISON: Mammography: This study is compared with prior exams dating back to TECHNIQUE: Digital breast tomosynthesis is performed in both the craniocaudal and mediolateral oblique views along with computer-aided detection (CAD). Synthesized 2D images are generated from the tomosynthesis. FINDINGS: There are scattered areas of fibroglandular density (ACR BI-RADS breast composition Category b). There are no significant masses, abnormal calcifications, or other abnormalities. Scattered benign calcifications are present. MM/MM tomosynthesis screening BI Line IMPRESSION: No mammographic evidence of malignancy. ASSESSMENT: BI-RADS BI-RADS 2 - Benign Findings RECOMMENDATION: Routine annual mammography screening. 1 year F/U This examination should not preclude the clinical evaluation of a suspicious palpable abnormality. This patient's information was entered into a reminder system with a target due date for their next mammogram.
== END 2023-08-30 09:56 | disposition home or self-care (01) ==
LOC: HO.MAMMO 09:55
PROVIDERS: PCP Internal Medicine; Visit Provider Internal Medicine
DX: Z12.31 Encounter for screening mammogram for malignant neoplasm of breast (principal)
CPT/HCPCS: 77063; 77067

== ENCOUNTER → 2023-08-30 10:00 | Outpatient (BNV) | payer MEDICARE, SELFPAY | PROVIDERS: PCP Internal Medicine; Visit Provider Radiology Diagnostic Radiology | DX: Z12.31 Encounter for screening mammogram for malignant neoplasm of breast (principal) | CPT/HCPCS: 77063; 77067 ==

== ENCOUNTER 2023-10-18 11:18 | Outpatient (AMB) | payer MEDICARE, SELFPAY ==
[2023-10-18 11:21] VITALS: BP 142/70; PULSE 57; O2SAT 97; BMI 34.0
--- NOTE | 2023-10-18 11:21 | A.OFFPC_ITS ---
Vital Signs 10/18/23 11:21 Height 5 ft 4 in Weight 198 lb 6 oz BMI 34.0 BP 142/70 H Blood Pressure Location Rt brachial Position Sitting Pulse 57 Pulse Source Pulse Oximeter Pulse Oximetry (%) 97 Oxygen Delivery Method Room Air Intake Visit Reasons: 4 month Follow Up Rsch from 10/11 Allergies No Known Allergies [No Known Allergies*] Allergy (Verified 10/18/23 11:25) Medication List - Last Reviewed 10/18/23 by Jeannette Barrios MA amlodipine 5 mg PO DAILY 90 days atenolol 100 mg PO DAILY 90 days losartan-hydrochlorothiazide 100-12.5 mg 1 tab PO DAILY 90 days pramipexole 0.5 mg PO BEDTIME simvastatin 20 mg PO BEDTIME zolpidem 10 mg PO BEDTIME PRN 90 days Tobacco use date assessed: 10/18/23 Fall risk assessment: No Falls in past year Last assessed Fall Risk: 10/18/23 Dental Screening Dental Screen Date: 10/18/23 Did you have a dental visit in the last 12 months?: Yes Did you have a dental problem in the last 6 months where you did not have access to dental care?: No Was dental information given to patient?: Patient has dentist HPI 4 month Follow Up Rsch from 10/11 HPI Details Patient is 73-year-old female came in today for follow-up appointment Patient is on zolpidem which is a controlled medication She takes it at night for insomnia, patient is aware that she will need three- month follow-up appointment for refill Patient is also aware of side effects Patient never took semaglutide injection as pharmacy/insurance did not cover it BMI continued to be elevated Hypertension:? Patient is on losartan hydrochlorothiazide 100-12.5 and amlodipine 5 mg once a day.? Tolerating medication Restless leg syndrome:? Continue pramipexole 0.5 mg before bedtime Lipid disorder:? Patient is on simvastatin 20 mg and diet-controlled.? Osteopenia: Continue weight-bearing exercises and calcium rich foods Labs done recently reviewed, 1 of liver enzyme is slightly elevated, we will continue to monitor Follow-up 3 months [facility] Medical History Difficulty sleeping Restless leg syndrome Lipid disorder Hypertension, essential Surgical History History of colonoscopy History of surgery History of appendectomy History of hysterectomy Family History Father HTN (hypertension) Cancer Mother HTN (hypertension) Bone cancer Brother Skin cancer Maternal Grandfather No problems noted. Maternal Grandmother No problems noted. Paternal Grandfather No problems noted. Paternal Grandmother No problems noted. Sister No problems noted. Son No problems noted. Social History Housing: Condominium Patient Tobacco Use Status: Former Tobacco user (quit 50 years ago ) Years Smoked: 1 year e-Cigarette/Vaping Use: Never Used service: No Current occupational status: retired Cognitive needs: No Hearing needs: No Vision needs: No Questionnaire PHQ-9 Over the last 2 weeks, how often have you been bothered by any of the following problems? 1. Little interest or pleasure in doing things: not at all 2. Feeling down, depressed, or hopeless: not at all 3. Trouble falling or staying asleep, or sleeping too much: not at all 4. Feeling tired or having little energy: not at all 5. Poor appetite or overeating: not at all 6. Feeling bad about yourself - or that you are a failure or have let yourself or your family down: not at all 7. Trouble concentrating on things, such as reading the newspaper or watching television: not at all 8. Moving or speaking so slowly that other people could have noticed. Or the opposite - being so fidgety or restless that you have been moving around a lot more than usual: not at all 9. Thoughts that you would be better off or of hurting yourself in some way: not at all Total score: 0 Depression Screening Interpretation: Negative Depression Screening Done: Yes 49955 - PHQ-9 Billing: Yes Source: Developed by Drs. Israel Gutierrez, Cayla Enriquez, Valdez Cowart and colleagues, with an educational joão from [employer]. Thrive Questionnaire Date Thrive assessed: 10/18/23 I am a: Patient What is your living situation today?: I have a steady place to live Within the past 12 months, did the food you bought not last and you didn't have the money to get more?: Never true Within the past 12 months, did you worry whether your food would run out before you got money to buy more?: Never true Do you have trouble paying for medicines?: No Do you have trouble getting transportation to medical appointments?: No Do you have trouble paying your heating and electricity bill?: No Do you have trouble taking care of your child, family member or friend?: No Do you have trouble with day-to-day activities such as bathing, preparing meals, shopping, managing finances, etc.?: No Are you currently unemployed and looking for a job?: No Are you interested in more education?: No Please select the resources that you would like help with: Housing/Long Term Currently or been in a relationship where the following occur: No concerns reported THRIVE Score: 0 AUDIT C Alcohol Use Questionnaire (AUDIT-C) 1. How often do you have a drink containing alcohol?: 2-3 times a week 2. How many drinks containing alcohol do you have on a typical day when you are drinking?: 1 or 2 3. How often do you have six or more drinks on one occasion?: Never Total Score: 3 Score Reviewed/Action Taken: Yes VON-7 AMB Questionnaire VON-7 Date VON - 7 assessed: 10/18/23 Feeling nervous, anxious, or on edge: 0 = Not at all Not being able to stop or control worryin = Not at all Worrying too much about different things: 0 = Not at all Trouble relaxin = Not at all Being so restless that it is hard to sit still: 0 = Not at all Becoming easily annoyed or irritable: 0 = Not at all Feeling afraid as if something awful might happen: 0 = Not at all Total VON-7 score (0-4 normal; 5-9 mild; 10-14 moderate; 15-21 severe): 0 Source: Developed by Drs. Israel Gutierrez, Cayla Enriquez, Valdez Cowart and colleagues, with an educational joão from [employer]. VON-7 Assessment Billing VON-7 Assessment Tool: VON-7 Assessment 59209 Review of Systems Const Denies chills and Denies fever(s) ENT Denies epistaxis and Denies nasal discharge Card Denies chest pain Resp Denies chest congestion, Denies cough and Denies hemoptysis GI Denies diarrhea and Denies nausea Skin/Breast Denies rash Neuro Reports no additional complaints Psych Reports no additional complaints Endo Reports no additional complaints Physical exam (Primary Care) Vital Signs: Last Vital Signs Pulse 57 10/18/23 11:21 BP 142/70 H 10/18/23 11:21 Pulse Ox 97 10/18/23 11:21 Oxygen Delivery Method Room Air 10/18/23 11:21 BMI result Body Mass Index 34.0 Tobacco/Smoking Status: Tobacco use Status Tobacco use date assessed 06/15/23 10/18/23 11:24 Patient Tobacco Use Status Former Tobacco user (quit 50 10/18/23 11:24 years ago ) e-Cigarette/Vaping Use Never Used 10/18/23 11:24 PHQ-9: PHQ-9 Score PHQ-9: Total score 0 10/18/23 11:24 Depression Screening Interpretation: Negative Thrive Assessment: Date of Thrive Assessment Date Thrive assessed 10/18/23 10/18/23 11:24 Currently or been in a relationship where the following occur: No concerns reported Const General: cooperative, comfortable and no acute distress Orientation/consciousness: patient oriented x3 HENMT Head: Yes normocephalic Eyes General: appearance normal, both eyes and all related structures Neck Neck: Yes supple Resp Effort & Inspection: normal respiratory effort, no cough and no stridor Cardio Rhythm: regular rhythm Heart sounds: S1 normal heart sound present and S2 normal heart sound present Skin General skin exam: turgor normal Neuro General: patient oriented x3, tone normal and moves all extremities Extrem Right lower extremity: no edema Left lower extremity: no edema Assessment and Plan Assessment & Plan (1) Hypertension, essential: Code(s): I10 - Essential (primary) hypertension (2) Lipid disorder: Code(s): E78.9 - Disorder of lipoprotein metabolism, unspecified (3) Restless leg syndrome: Code(s): G25.81 - Restless legs syndrome (4) Difficulty sleeping: Code(s): G47.9 - Sleep disorder, unspecified (5) Obesity due to excess calories: Code(s): E66.09 - Other obesity due to excess calories Qualifiers: Body mass index: BMI 34.0-34.9 Obesity classification: adult class 1 (BMI 30 - 34.9) Serious obesity comorbidity presence: with serious comorbidity Qualified Code(s): E66.09 - Other obesity due to excess calories; Z68.34 - Body mass index [BMI] 34.0-34.9, adult (6) Osteopenia: Code(s): M85.80 - Other specified disorders of bone density and structure, unspecified site Qualifiers: Osteopenia location: lumbar spine Qualified Code(s): M85.88 - Other sp ecified disorders of bone density and structure, other site (7) LFT elevation: Code(s): R79.89 - Other specified abnormal findings of blood chemistry Plan Patient is 73-year-old female came in today for follow-up appointment Patient is on zolpidem which is a controlled medication She takes it at night for insomnia, patient is aware that she will need three- month follow-up appointment for refill Patient is also aware of side effects Patient never took semaglutide injection as pharmacy/insurance did not cover it BMI continued to be elevated Hypertension:? Patient is on losartan hydrochlorothiazide 100-12.5 and amlodipine 5 mg once a day.? Tolerating medication Restless leg syndrome:? Continue pramipexole 0.5 mg before bedtime Lipid disorder:? Patient is on simvastatin 20 mg and diet-controlled.? Osteopenia: Continue weight-bearing exercises and calcium rich foods Labs done recently reviewed, 1 of liver enzyme is slightly elevated, we will continue to monitor Follow-up 3 months Orders: Orders Complete Blood Count Auto Diff Today E66.09 - Other obesity due to excess calories, E78.9 - Disorder of lipoprotein metabolism, unspecified, G25.81 - Restless legs syndrome, G47.9 - Sleep disorder, unspecified, I10 - Essential (primary) hypertension, M85.88 - Other specified disorders of bone density and structure, other site, R79.89 - Other specified abnormal findings of blood chemistry, Z68.34 - Body mass index [BMI] 34.0-34.9, adult Comprehensive Met. Panel Today E66.09 - Other obesity due to excess calories, E78.9 - Disorder of lipoprotein metabolism, unspecified, G25.81 - Restless legs syndrome, G47.9 - Sleep disorder, unspecified, I10 - Essential (primary) hypertension, M85.88 - Other specified disorders of bone density and structure, other site, R79.89 - Other specified abnormal findings of blood chemistry, Z68.34 - Body mass index [BMI] 34.0-34.9, adult Medications: Refilled zolpidem 10 mg PO BEDTIME 90 days PRN 90 tabs 0RF insomnia losartan-hydrochlorothiazide 100-12.5 mg 1 tab PO DAILY 90 days 90 tabs 0RF amlodipine 5 mg PO DAILY 90 days 90 tabs 0RF pramipexole 0.5 mg PO BEDTIME 90 tabs 1RF atenolol 100 mg PO DAILY 90 days 90 tabs 0RF simvastatin 20 mg PO BEDTIME 90 tabs 1RF Coding Level of Care Code Est Pt Level 4 (01973) Complex EM visit Add On G2211 Diagnoses Hypertension, essential I10 Lipid disorder E78.9 Restless leg syndrome G25.81 Difficulty sleeping G47.9 Class 1 obesity due to excess calories with serious comorbidity and body mass index (BMI) of 34.0 to 34.9 in adult E66.09; Z68.34 Body mass index: BMI 34.0-34.9 Obesity classification: adult class 1 (BMI 30 - 34.9) Serious obesity comorbidity presence: with serious comorbidity 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 Osteopenia location: lumbar spine LFT elevation R79.89 Additional Codes VON-7 Assessment Billing - VON-7 Assessment Tool: VNO-7 Assessment [id number] ([id number])
== END 2023-10-18 11:36 | disposition home or self-care (01) ==
PROVIDERS: PCP Internal Medicine; Visit Provider Internal Medicine
DX: I10 Essential (primary) hypertension (principal); E78.9 Disorder of lipoprotein metabolism, unspecified; G25.81 Restless legs syndrome; G47.9 Sleep disorder, unspecified; E66.09 Other obesity due to excess calories; Z68.34 Body mass index [BMI] 34.0-34.9, adult; M85.88 Other specified disorders of bone density and structure, other site; R79.89 Other specified abnormal findings of blood chemistry
CPT/HCPCS: 99214; G2211

== ENCOUNTER 2023-12-15 08:24 | Outpatient (AMB) | payer MEDICARE, SELFPAY ==
--- NOTE | 2023-12-15 08:26 | A.OFFPC_ITS ---
Intake Visit Reasons: Discuss B/P~ [phone] Allergies No Known Allergies [No Known Allergies*] Allergy (Verified 12/15/23 08:28) Medication List - Last Reconciled 12/15/23 by Murali Jaimes MD amlodipine 5 mg PO DAILY 90 days atenolol 100 mg PO DAILY 90 days losartan-hydrochlorothiazide 100-12.5 mg 1 tab PO DAILY 90 days zolpidem 10 mg PO BEDTIME PRN 90 days Tobacco use date assessed: 12/15/23 Fall risk assessment: No Falls in past year Last assessed Fall Risk: 12/15/23 Dental Screening Dental Screen Date: 12/15/23 Did you have a dental visit in the last 12 months?: Yes Did you have a dental problem in the last 6 months where you did not have access to dental care?: No Was dental information given to patient?: Patient has dentist HPI Discuss B/P~ [phone] HPI Details this is telemed visit Patient is a candidate for kidney transplant for her brother and is trying to get off some meds she has stopped simvastatin and pramipaxol she would like to stop one Bp med, as its a requirement to not take more than one med to qualify her Bp is running low at home readings for last 3 days are 111/69 104/74 106/69 I have told her to stop amlodipine 5 mg for now continue monitoring Bp she has apt in [place] 12/26 for [facility] Medical History Difficulty sleeping Restless leg syndrome Lipid disorder Hypertension, essential Surgical History History of colonoscopy History of surgery History of appendectomy History of hysterectomy Family History Father HTN (hypertension) Cancer Mother HTN (hypertension) Bone cancer Brother Skin cancer Maternal Grandfather No problems noted. Maternal Grandmother No problems noted. Paternal Grandfather No problems noted. Paternal Grandmother No problems noted. Sister No problems noted. Son No problems noted. Social History Housing: Condominium Patient Tobacco Use Status: Former Tobacco user (quit 50 years ago ) Years Smoked: 1 year e-Cigarette/Vaping Use: Never Used service: No Current occupational status: retired Cognitive needs: No Hearing needs: No Vision needs: No Questionnaire Thrive Questionnaire Date Thrive assessed: 10/18/23 I am a: Patient What is your living situation today?: I have a steady place to live Within the past 12 months, did the food you bought not last and you didn't have the money to get more?: Never true Within the past 12 months, did you worry whether your food would run out before you got money to buy more?: Never true Do you have trouble paying for medicines?: No Do you have trouble getting transportation to medical appointments?: No Do you have trouble paying your heating and electricity bill?: No Do you have trouble taking care of your child, family member or friend?: No Do you have trouble with day-to-day activities such as bathing, preparing meals, shopping, managing finances, etc.?: No Are you currently unemployed and looking for a job?: No Are you interested in more education?: No Please select the resources that you would like help with: None Currently or been in a relationship where the following occur: No concerns reported THRIVE Score: 0 VON-7 AMB Questionnaire VON-7 Date VON - 7 assessed: 10/18/23 Source: Developed by Drs. Israel Gutierrez, Cayla Enriquez, Valdez Cowart and colleagues, with an educational joão from [employer]. Review of Systems Const Denies chills and Denies fever(s) ENT Denies epistaxis and Denies nasal discharge Card Denies chest pain Resp Denies chest congestion, Denies cough and Denies hemoptysis GI Denies diarrhea and Denies nausea Skin/Breast Denies rash Neuro Reports no additional complaints Psych Reports no additional complaints Endo Reports no additional complaints Physical exam (Primary Care) Tobacco/Smoking Status: Tobacco use Status Tobacco use date assessed 12/15/23 12/15/23 08:28 Patient Tobacco Use Status Former Tobacco user (quit 51 12/15/23 08:28 years ago ) e-Cigarette/Vaping Use Never Used 12/15/23 08:28 Thrive Assessment: Date of Thrive Assessment Date Thrive assessed 10/18/23 12/15/23 08:28 Currently or been in a relationship where the following occur: No concerns reported Telehealth Telehealth Telehealth Platform: [employer] Location of provider rendering services: practice address Location of patient: address on file Patient Identification confirmed using: Name, : Yes Telehealth method: video Patient verbally consented to treatment: Yes Patient verbally consented to billing insurance company: Yes Patient informed of any privacy concerns related to visit: Yes Minutes spent on Phone/Video with Pt.: 13 Assessment and Plan Assessment & Plan (1) Hypertension, essential: Code(s): I10 - Essential (primary) hypertension (2) Lipid disorder: Code(s): E78.9 - Disorder of lipoprotein metabolism, unspecified (3) Restless leg syndrome: Code(s): G25.81 - Restless legs syndrome Plan this is telemed visit Patient is a candidate for kidney transplant for her brother and is trying to get off some meds she has stopped simvastatin and pramipaxol she would like to stop one Bp med, as its a requirement to not take more than one med to qualify her Bp is running low at home readings for last 3 days are 111/69 104/74 106/69 I have told her to stop amlodipine 5 mg for now continue monitoring Bp she has apt in house 12/26 for PE Coding Level of Care Code Tele Est Pt Level 3 (66140) Diagnoses Hypertension, essential I10 Lipid disorder E78.9 Restless leg syndrome G25.81
== END 2023-12-15 10:15 | disposition home or self-care (01) ==
LOC: HO.HMCC 08:24
PROVIDERS: PCP Internal Medicine; Visit Provider Internal Medicine
DX: I10 Essential (primary) hypertension (principal); E78.9 Disorder of lipoprotein metabolism, unspecified; G25.81 Restless legs syndrome

== ENCOUNTER → 2023-12-15 08:24 | Outpatient (BNVA) | payer MEDICARE, SELFPAY | PROVIDERS: PCP Internal Medicine; Visit Provider Internal Medicine ==

== ENCOUNTER 2023-12-27 11:55 | Outpatient (REF) | payer MEDICARE, SELFPAY ==
[2023-12-27 13:08] LABS: MANUAL DIFF FLAG NO
[2023-12-27 13:26] LABS: Basophils Percent Auto 0.4 % (0-2); Eosinophils Absolute Auto 0.1 X10*3/uL (0.0-0.4); Eosinophils Percent Auto 1.1 % (0-4); Hematocrit 39.4 % (37.0-47.0); Hemoglobin 13.4 g/dl (12.0-16.0); Imm Gran Abs Auto 0.02 X10*3/uL (0.00-0.03); Imm Gran Pct Auto 0.3 % (0.0-0.4); Lymphocytes Absolute Auto 1.9 X10*3/uL (1.2-4.9); Lymphocytes Percent Auto 26.9 % (20-40); Mean Corpuscular Hemoglobin 31.5 pg (27.0-33.0); Mean Corpuscular Volume 92.7 fL (80.0-98.0); Mean Platelet Volume 11.6 fL (9.4-12.3); Monocytes Absolute Auto 0.5 X10*3/uL (0.1-1.2); Monocytes Percent Auto 7.4 % (2-11); Neutrophils Absolute Auto 4.5 x10*3/uL (2.0-8.3); Neutrophils Percent Auto 63.9 % (45-73); Platelet Count 198 X10*3/uL (160-400); Red Blood Count 4.25 X10*6/uL (4.20-5.50); Red Cell Distribution Width 13.3 % (11.0-16.0)
[2023-12-27 14:13] LABS: Alanine Aminotransferase 37 U/L (0-31); Albumin Level 4.4 g/dL (3.5-5.0); Alkaline Phosphatase 44 U/L (39-117); Anion Gap 11 (12-20); Aspartate Amino Transferase 23 U/L (5-31); Bilirubin Total 0.7 mg/dL (0.0-1.0); Blood Urea Nitrogen 16 mg/dL (9-16); Calcium 9.7 mg/dL (8.4-10.2); Carbon Dioxide 27 mmol/L (22-29); Chloride 106 mmol/L (96-108); Estimated Glomerular Filt Rate > 60; Glucose Random 116 mg/dL (60-115); Potassium 3.8 mmol/L (3.3-5.1); Sodium 140 mmol/L (135-145); Total Protein 7.4 g/dL (6.5-8.0)
== END 2023-12-27 11:56 | disposition home or self-care (01) ==
LOC: HO.HMGCLDS 11:55
PROVIDERS: PCP Internal Medicine; Visit Provider Internal Medicine
DX: Z00.01 Encounter for general adult medical examination with abnormal findings (principal); I10 Essential (primary) hypertension; E78.9 Disorder of lipoprotein metabolism, unspecified; M85.88 Other specified disorders of bone density and structure, other site; D49.2 Neoplasm of unspecified behavior of bone, soft tissue, and skin; G25.81 Restless legs syndrome; G47.9 Sleep disorder, unspecified; E66.09 Other obesity due to excess calories; Z68.34 Body mass index [BMI] 34.0-34.9, adult; R79.89 Other specified abnormal findings of blood chemistry; Z79.899 Other long term (current) drug therapy
CPT/HCPCS: 36415; 80053; 85025; 99212; 99397

== ENCOUNTER 2023-12-27 12:02 | Outpatient (AMB) | payer MEDICARE, SELFPAY ==
--- NOTE | 2023-12-27 12:07 | A.OFFPC_ITS ---
Vital Signs 12/27/23 12:09 Height 5 ft 4 in Weight 199 lb 8 oz BMI 34.2 BP 142/76 H Pulse 49 L Pulse Source Pulse Oximeter Pulse Oximetry (%) 96 Oxygen Delivery Method Room Air Intake Visit Reasons: PE Allergies No Known Allergies [No Known Allergies*] Allergy (Verified 12/15/23 08:28) Medication List - Last Reconciled 12/27/23 by Murali Jaimes MD atenolol 100 mg PO DAILY 90 days losartan-hydrochlorothiazide 100-12.5 mg 1 tab PO DAILY 90 days Tobacco use date assessed: 12/15/23 Dental Screening Dental Screen Date: 12/15/23 HPI PE HPI Details Patient is 73-year-old female came in today for physical examination Blood pressure continued to be elevated I have changed her losartan hydrochlorothiazide to losartan 100 hydrochlorothiaz bharti 25 She is to continue with atenolol 100 mg Patient feels fine and offer no complaints today Mammogram was August of this year Patient says that she is approved for kidney donor for her brother But the brother has not been approved for transplant yet She has stopped taking the sleeping pill and is sleeping same as before BMI is elevated patient is having difficulty losing weight She will return in 4 months for follow-up on blood pressure She just had labs done today, report is not available yet [facility] Medical History Difficulty sleeping Restless leg syndrome Lipid disorder Hypertension, essential Surgical History History of colonoscopy History of surgery History of appendectomy History of hysterectomy Family History Father HTN (hypertension) Cancer Mother HTN (hypertension) Bone cancer Brother Skin cancer Maternal Grandfather No problems noted. Maternal Grandmother No problems noted. Paternal Grandfather No problems noted. Paternal Grandmother No problems noted. Sister No problems noted. Son No problems noted. Social History Housing: Condominium Patient Tobacco Use Status: Former Tobacco user (quit 50 years ago ) Years Smoked: 1 year e-Cigarette/Vaping Use: Never Used service: No Current occupational status: retired Cognitive needs: No Hearing needs: No Vision needs: No Questionnaire Thrive Questionnaire Date Thrive assessed: 10/18/23 I am a: Patient What is your living situation today?: I have a steady place to live Within the past 12 months, did the food you bought not last and you didn't have the money to get more?: Never true Within the past 12 months, did you worry whether your food would run out before you got money to buy more?: Never true Do you have trouble paying for medicines?: No Do you have trouble getting transportation to medical appointments?: No Do you have trouble paying your heating and electricity bill?: No Do you have trouble taking care of your child, family member or friend?: No Do you have trouble with day-to-day activities such as bathing, preparing meals, shopping, managing finances, etc.?: No Are you currently unemployed and looking for a job?: No Are you interested in more education?: No Please select the resources that you would like help with: None Currently or been in a relationship where the following occur: No concerns reported THRIVE Score: 0 VON-7 AMB Questionnaire VON-7 Date VON - 7 assessed: 10/18/23 Source: Developed by Drs. Israel Gutierrez, Cayla Enriquez, Valdez Cowart and colleagues, with an educational joão from [employer]. Review of Systems Const Denies chills, Denies fever(s) and Denies headache(s) Eyes Denies blurry vision ENT Denies headache(s), Denies nasal discharge, Denies nasal obstruction, Denies odynophagia and Denies sinus pain Card Denies chest pain at rest and Denies chest pain with activity Resp Denies cough and Denies hemoptysis GI Denies diarrhea, Denies odynophagia, Denies vomiting and Denies hematemesis Reports as per HPI Musc Denies abnormal gait Skin/Breast Reports as per HPI Neuro Denies Neuro-related abnormal movements, Denies Abnormal speech present, Denies abnormal gait, Denies headache(s) and Denies Sensory deficit (Neuro) Psych Denies mood swings and Denies paranoia Endo Reports as per HPI August/Lymph Reports as per HPI Aller/Immun Reports as per HPI Physical exam (Primary Care) Vital Signs: Last Vital Signs Pulse 49 L 12/27/23 12:09 BP 142/76 H 12/27/23 12:09 Pulse Ox 96 12/27/23 12:09 Oxygen Delivery Method Room Air 12/27/23 12:09 BMI result Body Mass Index 34.2 Tobacco/Smoking Status: Tobacco use Status Tobacco use date assessed 12/15/23 12/27/23 12:25 Patient Tobacco Use Status Former Tobacco user (quit 51 12/27/23 12:25 years ago ) e-Cigarette/Vaping Use Never Used 12/27/23 12:25 Thrive Assessment: Date of Thrive Assessment Date Thrive assessed 10/18/23 12/27/23 12:25 Currently or been in a relationship where the following occur: No concerns reported Const General: cooperative, comfortable and no acute distress Orientation/consciousness: patient oriented x3 HENMT Head: Yes normocephalic and Yes atraumatic Eyes General: appearance normal, both eyes and all related structures Pupils: Equal, round and reactive pupils present EOM: EOMs intact bilaterally Neck Neck: Yes supple and No lymphadenopathy Thyroid: Thyroid normal Lymphatic: no lymphadenopathy noted Chest Breast/axilla palpation: normal palpation of the breasts Resp Effort & Inspection: normal respiratory effort and able to speak in complete sentences Auscultation: clear to auscultation bilaterally Cardio Heart sounds: S1 normal heart sound present and S2 normal heart sound present GI Palpation (GI): Soft to palpation and nontender Auscultation: normal bowel sounds General: Yes no CVA tenderness Back/Spine/Pelvis Back: no CVA tenderness Skin Other: White raised small irregular multiple skin lesions both side of lower extremity and feet General skin exam: elasticity normal and turgor normal Neuro General: patient oriented x3 and gait normal Cranial nerves: Yes Equal, round and reactive pupils present Speech: No Abnormal speech present Sensory Exam: No Sensory deficit (Neuro) Coordination: tandem gait normal and Romberg test negative Extrem General: Yes normal exam except as noted and No edema Coding Level of Care Code Est Pt Level 3 (17599) Est Pt Prev Care >65y(07689) Diagnoses Encounter for general adult medical examination with abnormal findings Z00.01 Hypertension, essential I10 Lipid disorder E78.9 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 Osteopenia location: lumbar spine Abnormal skin growth D49.2 Assessment & Plan Assessment & Plan (1) Encounter for general adult medical examination with abnormal findings: Code(s): Z00.01 - Encounter for general adult medical examination with abnormal findings Category: Medical (2) Hypertension, essential: Code(s): I10 - Essential (primary) hypertension Category: Medical (3) Lipid disorder: Code(s): E78.9 - Disorder of lipoprotein metabolism, unspecified Category: Medical (4) Osteopenia: Code(s): M85.80 - Other specified disorders of bone density and structure, unspecified site Category: Medical Qualifiers: Osteopenia location: lumbar spine Qualified Code(s): M85.88 - Other specified disorders of bone density and structure, other site (5) Abnormal skin growth: Code(s): D49.2 - Neoplasm of unspecified behavior of bone, soft tissue, and skin Category: Medical Plan Patient is 73-year-old female came in today for physical examination Blood pressure continued to be elevated I have changed her losartan hydrochlorothiazide to losartan 100 hydrochlorothiazide 25 She is to continue with atenolol 100 mg Patient feels fine and offer no complaints today On examination I noticed that patient have developed White small skin growths both side of her lower leg and feet She said that she has had them for a while they come and go But she has not seen Dermatology, I have placed a referral for evaluation Mammogram was August of this year Patient says that she is approved for kidney donor for her brother But the brother has not been approved for transplant yet She has stopped taking the sleeping pill and is sleeping same as before BMI is elevated patient is having difficulty losing weight She will return in 4 months for follow-up on blood pressure She just had labs done today, report is not available yet Orders: Referrals Dermatology Referral D49.2 - Neoplasm of unspecified behavior of bone, soft tissue, and skin Medications: New losartan-hydrochlorothiazide 100-25 mg 1 tab PO DAILY 90 tabs 0RF Discontinued losartan-hydrochlorothiazide 100-12.5 mg Discontinued Reason: Doctor's Order 1 tab PO DAILY 90 days 90 tabs 0RF
[2023-12-27 12:09] VITALS: BP 142/76; PULSE 49; O2SAT 96; BMI 34.2
== END 2023-12-27 13:08 | disposition home or self-care (01) ==
PROVIDERS: PCP Internal Medicine; Visit Provider Internal Medicine
DX: Z00.00 Encounter for general adult medical examination without abnormal findings (principal); I10 Essential (primary) hypertension; E78.9 Disorder of lipoprotein metabolism, unspecified; M85.88 Other specified disorders of bone density and structure, other site; D49.2 Neoplasm of unspecified behavior of bone, soft tissue, and skin

== ENCOUNTER 2024-05-02 11:03 | Outpatient (AMB) | payer MEDICARE, SELFPAY ==
[2024-05-02 11:07] VITALS: BP 132/78; PULSE 57; O2SAT 97; BMI 34.1
--- NOTE | 2024-05-02 11:07 | MHC.PC.OV ---
Vital Signs 05/02/24 11:07 Height 5 ft 4 in Weight 198 lb 8 oz BMI 34.1 BP 132/78 Blood Pressure Location Rt brachial Position Sitting Pulse 57 Pulse Source Pulse Oximeter Pulse Oximetry (%) 97 Oxygen Delivery Method Room Air Intake Visit Reasons: Regular f/u Allergies No Known Allergies [No Known Allergies*] Allergy (Verified 05/02/24 11:08) Medication List - Last Reconciled 05/02/24 by Murali Jaimes MD atenolol 100 mg PO DAILY 90 days losartan-hydrochlorothiazide 100-25 mg 1 tab PO DAILY Tobacco use date assessed: 05/02/24 Fall risk assessment: No Falls in past year Last assessed Fall Risk: 05/02/24 Dental Screening Dental Screen Date: 05/02/24 Did you have a dental visit in the last 12 months?: Yes Did you have a dental problem in the last 6 months where you did not have access to dental care?: No Was dental information given to patient?: Patient has dentist HPI Regular f/u HPI Details History - The patient is a 73-year-old female presenting with follow-up of Essential Hypertension. - The blood pressure remains well-controlled under current medication regimen. - In December, laboratory results indicated a slightly elevated liver enzyme, but it has remained stable without any associated symptoms. - Routine six-month laboratory monitoring is in place, with upcoming testing scheduled for the next month. - No acute symptoms such as nausea, vomiting, abdominal pain, chest pain, or shortness of breath were reported. - Patient confirmed that no medication refill is required, indicating the adequacy of her current prescription supply. Problem List - Essential Hypertension - Elevated Liver Enzymes Patient Instructions - Return for routine laboratory tests next month for ongoing monitoring. - Continue current medication as prescribed for hypertension management. - Schedule a physical examination in six months, with insurance coverage confirmed. - Reach out if any new symptoms develop or if there are any health concerns before the next scheduled visit. Review of Systems - General: No fever no chills - Neurological: No headaches no dizziness - Ear nose throat: No sore throat no hearing difficulty no ear pain - Cardiovascular: No syncope, no chest pain, no palpitations - Gastrointestinal: No nausea vomiting or diarrhea - Endocrine: No polyuria polydipsia no heat intolerance - Genitourinary: No dysuria , no blood in urine Physical Exam General: No acute distress HEENT: No acute findings Neck: Supple Respiratory system: Able to talk in full sentences, no audible wheeze cardiovascular: S1-S2 regular in rate and rhythm Gastrointestinal: No nausea, vomiting, abdominal pain Extremities: No new findings 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 Maternal Grandmother No problems noted. Paternal Grandfather No problems noted. Paternal Grandmother No problems noted. Sister No problems noted. Son No problems noted. Social History Housing: Condominium Patient Tobacco Use Status: Former Tobacco user (quit 50 years ago ) Years Smoked: 1 year e-Cigarette/Vaping Use: Never Used service: No Current occupational status: retired Cognitive needs: No Hearing needs: No Vision needs: No Questionnaire PHQ-9 Over the last 2 weeks, how often have you been bothered by any of the following problems? 1. Little interest or pleasure in doing things: not at all 2. Feeling down, depressed, or hopeless: not at all 3. Trouble falling or staying asleep, or sleeping too much: not at all 4. Feeling tired or having little energy: not at all 5. Poor appetite or overeating: not at all 6. Feeling bad about yourself - or that you are a failure or have let yourself or your family down: not at all 7. Trouble concentrating on things, such as reading the newspaper or watching television: not at all 8. Moving or speaking so slowly that other people could have noticed. Or the opposite - being so fidgety or restless that you have been moving around a lot more than usual: not at all 9. Thoughts that you would be better off or of hurting yourself in some way: not at all Total score: 0 Source: Developed by Drs. Israel Gutierrez, Cayla Enriquez, Valdez Cowart and colleagues, with an educational joão from [employer]. Thrive Questionnaire Date Thrive assessed: 05/01/24 I am a: Patient What is your living situation today?: I have a steady place to live Within the past 12 months, did the food you bought not last and you didn't have the money to get more?: Never true Within the past 12 months, did you worry whether your food would run out before you got money to buy more?: Never true Do you have trouble paying for medicines?: No Do you have trouble getting transportation to medical appointments?: No Do you have trouble paying your heating and electricity bill?: No Do you have trouble taking care of your child, family member or friend?: No Do you have trouble with day-to-day activities such as bathing, preparing meals, shopping, managing finances, etc.?: No Are you currently unemployed and looking for a job?: No Are you interested in more education?: No Please select the resources that you would like help with: None Currently or been in a relationship where the following occur: No concerns reported THRIVE Score: 0 AUDIT C Alcohol Use Questionnaire (AUDIT-C) 1. How often do you have a drink containing alcohol?: 2-4 times a month 2. How many drinks containing alcohol do you have on a typical day when you are drinking?: 1 or 2 3. How often do you have six or more drinks on one occasion?: Never Total Score: 2 VON-7 AMB Questionnaire VON-7 Date VON - 7 assessed: 10/18/23 Feeling nervous, anxious, or on edge: 0 = Not at all Not being able to stop or control worryin = Not at all Worrying too much about different things: 0 = Not at all Trouble relaxin = Not at all Being so restless that it is hard to sit still: 0 = Not at all Becoming easily annoyed or irritable: 0 = Not at all Feeling afraid as if something awful might happen: 0 = Not at all Total VON-7 score (0-4 normal; 5-9 mild; 10-14 moderate; 15-21 severe): 0 Source: Developed by Drs. Israel Gutierrez, Cayla Enriquez, Valdez Cowart and colleagues, with an educational joão from [employer]. Physical exam (Primary Care) Vital Signs: Last Vital Signs Pulse 57 05/02/24 11:07 BP 132/78 05/02/24 11:07 Pulse Ox 97 05/02/24 11:07 Oxygen Delivery Method Room Air 05/02/24 11:07 BMI result Body Mass Index 34.1 Tobacco/Smoking Status: Tobacco use Status Tobacco use date assessed 05/02/24 05/02/24 11:09 Patient Tobacco Use Status Former Tobacco user (quit 51 05/02/24 11:09 years ago ) e-Cigarette/Vaping Use Never Used 05/02/24 11:09 PHQ-9: PHQ-9 Score PHQ-9: Total score 0 05/02/24 11:09 Thrive Assessment: Date of Thrive Assessment Date Thrive assessed 05/01/24 05/02/24 11:09 Currently or been in a relationship where the following occur: No concerns reported Coding Level of Care Code Est Pt Level 3 (93374) Complex EM visit Add On G2211 Diagnoses Hypertension, essential I10 Lipid disorder E78.9 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 Osteopenia location: lumbar spine Class 1 obesity due to excess calories with serious comorbidity and body mass index (BMI) of 34.0 to 34.9 in adult E66.09; Z68.34 Obesity classification: adult class 1 (BMI 30 - 34.9) Serious obesity comorbidity presence: with serious comorbidity Body mass index: BMI 34.0-34.9 Assessment & Plan Assessment & Plan (1) Hypertension, essential: Code(s): I10 - Essential (primary) hypertension Category: Medical (2) Lipid disorder: Code(s): E78.9 - Disorder of lipoprotein metabolism, unspecified Category: Medical (3) Osteopenia: Code(s): M85.80 - Other specified disorders of bone density and structure, unspecified site Category: Medical Qualifiers: Osteopenia location: lumbar spine Qualified Code(s): M85.88 - Other specified disorders of bone density and structure, other site (4) Obesity due to excess calories: Code(s): E66.09 - Other obesity due to excess calories Category: Medical Qualifiers: Obesity classification: adult class 1 (BMI 30 - 34.9) Serious obesity comorbidity presence: with serious comorbidity Body mass index: BMI 34.0-34.9 Qualified Code(s): E66.09 - Other obesity due to excess calories; Z68.34 - Body mass index [BMI] 34.0-34.9, adult Plan History - The patient is a 73-year-old female presenting with follow-up of Essential Hypertension. Has a history of osteopenia - The blood pressure remains well-controlled under current medication regimen. - In December, laboratory results indicated a slightly elevated liver enzyme, but it has remained stable without any associated symptoms. - Routine six-month laboratory monitoring is in place, with upcoming testing scheduled for the next month. - No acute symptoms such as nausea, vomiting, abdominal pain, chest pain, or shortness of breath were reported. - Patient confirmed that no medication refill is required, indicating the adequacy of her current prescription supply. Problem List - Essential Hypertension - Elevated Liver Enzymes - osteopenia - obesity Patient Instructions - Return for routine laboratory tests next month for ongoing monitoring. - Continue current medication as prescribed for hypertension management. - Schedule a physical examination in six months, with insurance coverage confirmed. - Reach out if any new symptoms develop or if there are any health concerns before the next scheduled visit. Orders: Orders Complete Blood Count Auto Diff Today E66.09 - Other obesity due to excess calories, E78.9 - Disorder of lipoprotein metabolism, unspecified, I10 - Essential (primary) hypertension, M85.88 - Other specified disorders of bone density and structure, other site, Z68.34 - Body mass index [BMI] 34.0-34.9, adult Comprehensive Met. Panel Today E66.09 - Other obesity due to excess calories, E78.9 - Disorder of lipoprotein metabolism, unspecified, I10 - Essential (primary) hypertension, M85.88 - Other specified disorders of bone density and structure, other site, Z68.34 - Body mass index [BMI] 34.0-34.9, adult LDL Cholesterol Direct Today E66.09 - Other obesity due to excess calories, E78.9 - Disorder of lipoprotein metabolism, unspecified, I10 - Essential (primary) hypertension, M85.88 - Other specified disorders of bone density and structure, other site, Z68.34 - Body mass index [BMI] 34.0-34.9, adult Vitamin D 25-OH (D2 and D3) Today E66.09 - Other obesity due to excess calories, E78.9 - Disorder of lipoprotein metabolism, unspecified, I10 - Essential (primary) hypertension, M85.88 - Other specified disorders of bone density and structure, other site, Z68.34 - Body mass index [BMI] 34.0-34.9, adult
--- OUTSIDE RECORDS SUMMARY | 2024-05-02 12:54 | XMS_ITS | Continuity of Care Document ---
Author Name [facility] Organization [facility] Care Team Providers Care Fire Extinguisher Tester Name Role Phone [facility] Unavailable Unavailable Problems Combined list of problems from Department of Defense and Veterans Affairs facilities. It does not include entries that were removed or entered in error. Problem Status Onset Date Problem Type Date of Resolution Comments Source Diagnosis: ICD-10-CM Z71.0 Prsn encntr hlth serv to consult on behalf of another person Active Diagnosis [facility] Encounters Combined list of: 1) Encounters from Department of Veterans Affairs facilities going backup to the last 18 months, not all [facility] inpatient encounters are included; 2) Encounters from the Department of Defense facilities going backup to 280 months. Location Location Details Encounter Type Encounter Number Reason For Visit Attending Provider ADM Date DC Date Status Disposition Source [facility] HC PRO PHONE CALL 5-10 MIN [id number] Diagnos is: ICD-10- CM Z71.0 Prsn encntr hlth serv to consult on behalf of another person ANAND,RU TH E 11/12 [facility] HC PRO PHONE CALL 5-10 MIN [id number] Diagnos is: ICD-10- CM Z71.0 Prsn encntr hlth serv to consult on behalf of another person ANAND,RU TH E 11/16 [facility] HC PRO PHONE CALL 5-10 MIN [id number] Diagnos is: ICD-10- CM Z71.0 Prsn encntr hlth serv to consult on behalf of another person ANAND,RU TH E 11/18 [facility] HC PRO PHONE CALL 5-10 MIN [id number] Diagnos is: ICD-10- CM Z71.0 Prsn encntr hlth serv to consult on behalf of another person ANAND,RU E 01/20 [facility] HLTH V ASSMT/REAS SESSMENT [id number] Diagnos is: ICD-10- CM Z71.0 Prsn encntr hlth serv to consult on behalf of another person ANAND,RU E 02/02 [facility] HC PRO PHONE CALL 5-10 MIN [id number] Diagnos is: ICD-10- CM Z71.0 Prsn encntr hlth serv to consult on behalf of another person ANAND,RU E 05/17 [facility] HLTH V ASSMT/REAS SESSMENT [id number] Diagnos is: ICD-10- CM Z71.0 Prsn encntr hlth serv to consult on behalf of another person ANAND,RU E 05/25 [facility] HLTH V ASSMT/REAS SESSMENT [id number] Diagnos is: ICD-10- CM Z71.0 Prsn encntr hlth serv to consult on behalf of another person ANAND,RU E 10/03 [facility] Outpatient Encounter [id number] 11/01 [facility] HLTH V ASSMT/REAS SESSMENT [id number] Diagnos is: ICD-10- CM Z71.0 Prsn encntr [facility] serv to consult on behalf of another person ADITYA ANAND 01/12 [facility]
--- OUTSIDE RECORDS SUMMARY | 2024-05-02 12:54 | XMS_ITS ---
Author Name [facility] Organization [facility] Address [address] [place] [id number] Selected Encounter This section includes the information on record at [place] for the Encounter. Date/Time Encounter Type Encounter Description Reason Pro vider Source Nov 02, 2023 02:20 PM Outpatient Encounter ADMIN PAT ACTIVTIES (MASNONCT) IHE Encounter Template Text not used by [facility] Encounter Notes: All associated encounter notes This section contains the clinical notes associated to the Encounter. Date/Time Encounter Note(s) Provider Source Nov 02, 2023 02:20 PM CAREGIVER CERTIFIC ATE: LOCAL TITLE: CSP ADMINISTRATIVE NOTE STANDARD TITLE: CAREGIVER CERTIFICATE DATE OF NOTE: NOV 02, 2023@14:20 ENTRY DATE: NOV 02, 2023@14:20:37 AUTHOR: KANU ANAND EXP COSIGNER: URGENCY: STATUS: COMPLETED Clinical Counselor received notification from [employer]SA (caregiver support database) that the [facility] service center mailed something to caregiver using [employer]PS and it was returned. They asked that this caregiver's address is confirmed. On this day, speech writer received confirmation from this caregiver who confirmed her address has not changed and she continues to receive mail at the present location: [place] [address] ELSA notified/ben completed /cesar/ KANU SEE LCSW CAREGIVER SUPPORT TERRA COTTA MOLD MAKER Signed: 11/02/2023 14:22 [facility] ANAND [facility]
== END 2024-05-02 12:06 | disposition home or self-care (01) ==
PROVIDERS: PCP Internal Medicine; Visit Provider Internal Medicine
DX: I10 Essential (primary) hypertension (principal); E78.9 Disorder of lipoprotein metabolism, unspecified; M85.88 Other specified disorders of bone density and structure, other site; E66.09 Other obesity due to excess calories; Z68.34 Body mass index [BMI] 34.0-34.9, adult

== ENCOUNTER → 2024-05-02 11:03 | Outpatient (BNVA) | payer MEDICARE, SELFPAY | PROVIDERS: PCP Internal Medicine; Visit Provider Internal Medicine | DX: I10 Essential (primary) hypertension (principal); E78.9 Disorder of lipoprotein metabolism, unspecified; M85.88 Other specified disorders of bone density and structure, other site; E66.09 Other obesity due to excess calories; Z68.34 Body mass index [BMI] 34.0-34.9, adult; Z71.3 Dietary counseling and surveillance | CPT/HCPCS: 99212 ==

== ENCOUNTER 2024-07-06 12:56 | Outpatient (AMB) | payer MEDICARE, SELFPAY ==
[2024-07-06 12:58] VITALS: BP 134/70; PULSE 62; O2SAT 98; BMI 33.5
--- NOTE | 2024-07-06 12:58 | MHC.PC.OV ---
Vital Signs 07/06/24 12:58 Height 5 ft 4 in Weight 195 lb 6 oz BMI 33.5 BP 134/70 Blood Pressure Location Rt brachial Position Sitting Pulse 62 Pulse Source Pulse Oximeter Pulse Oximetry (%) 98 Oxygen Delivery Method Room Air Intake Visit Reasons: Follow Up Allergies No Known Allergies [No Known Allergies*] Allergy (Verified 07/06/24 12:59) Medication List - Last Reconciled 07/06/24 by Murali Jaimes MD atenolol 100 mg PO DAILY 90 days losartan-hydrochlorothiazide 100-25 mg 1 tab PO DAILY pramipexole 0.5 mg PO BEDTIME zolpidem 10 mg PO BEDTIME PRN 30 days Tobacco use date assessed: 07/06/24 Fall risk assessment: No Falls in past year Last assessed Fall Risk: 07/06/24 Dental Screening Dental Screen Date: 07/06/24 Did you have a dental visit in the last 12 months?: Yes Did you have a dental problem in the last 6 months where you did not have access to dental care?: No Was dental information given to patient?: Patient has dentist HPI Follow Up HPI Details History - The patient is a 73-year-old female presenting with bereavement. - The patient reported the loss of her brother and grandson who in May. - Her grandson's was accidental, occurred when he was hit by a train. - The patient's grandson had lived with her since he was 13 years old. - This was emotionally challenging for the patient and other family members. - The patient reported experiencing alopecia. - The onset of hair loss was not specified, but persistent hair loss was noted. - The patient expressed interest in consulting a svp operations regarding treatment options. - The patient reported insomnia. - The patient has been unable to sleep well. - Zolpidem prescription was discussed, but the patient has not yet started taking it. - The patient reported a history of depression. - The patient described her grandson as having been depressed, denying any notion of suicide. - The emotional impact of these personal losses has been significant and affected her well-being. - Bp is stable - Restless legs stable with med due for labs today Problem List - Bereavement - Alopecia - Insomnia - Depression - restless leg - due for labs - obesity Patient Instructions - Continue taking prescribed medications as discussed. - Complete laboratory tests as soon as possible; the tests do not require fasting. - Start taking Zolpidem as prescribed to help with insomnia. - Consider scheduling an appointment with a svp operations for treatment options regarding hair loss. - Report any worsening symptoms or new concerns. Review of Systems - General: No fever no chills - Neurological: No headaches no dizziness - Ear nose throat: No sore throat no hearing difficulty no ear pain - Cardiovascular: No syncope, no chest pain, no palpitations - Gastrointestinal: No nausea vomiting or diarrhea - Endocrine: No polyuria polydipsia no heat intolerance - Genitourinary: No dysuria , no blood in urine Physical Exam - General: No acute distress - HEENT: No acute findings - Neck: Supple - Respiratory system: Able to talk in full sentences, no audible wheeze - Cardiovascular: S1-S2 regular in rate and rhythm - Gastrointestinal: No pain - Extremities: No new findings - 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 Maternal Grandmother No problems noted. Paternal Grandfather No problems noted. Paternal Grandmother No problems noted. Sister No problems noted. Son No problems noted. Social History Housing: Condominium Patient Tobacco Use Status: Former Tobacco user (quit 50 years ago ) Years Smoked: 1 year e-Cigarette/Vaping Use: Never Used service: No Current occupational status: retired Cognitive needs: No Hearing needs: No Vision needs: No Questionnaire Thrive Questionnaire Date Thrive assessed: 07/06/24 I am a: Patient What is your living situation today?: I have a steady place to live Within the past 12 months, did the food you bought not last and you didn't have the money to get more?: Never true Within the past 12 months, did you worry whether your food would run out before you got money to buy more?: Never true Do you have trouble paying for medicines?: No Do you have trouble getting transportation to medical appointments?: No Do you have trouble paying your heating and electricity bill?: No Do you have trouble taking care of your child, family member or friend?: No Do you have trouble with day-to-day activities such as bathing, preparing meals, shopping, managing finances, etc.?: No Are you currently unemployed and looking for a job?: No Are you interested in more education?: No Please select the resources that you would like help with: None Currently or been in a relationship where the following occur: No concerns reported THRIVE Score: 0 AUDIT C Alcohol Use Questionnaire (AUDIT-C) 1. How often do you have a drink containing alcohol?: 2-4 times a month 2. How many drinks containing alcohol do you have on a typical day when you are drinking?: 1 or 2 3. How often do you have six or more drinks on one occasion?: Never Total Score: 2 Score Reviewed/Action Taken: Yes VON-7 AMB Questionnaire VON-7 Date VON - 7 assessed: 07/06/24 Feeling nervous, anxious, or on edge: 0 = Not at all Not being able to stop or control worryin = Not at all Worrying too much about different things: 0 = Not at all Trouble relaxin = Not at all Being so restless that it is hard to sit still: 0 = Not at all Becoming easily annoyed or irritable: 1 = Several days Feeling afraid as if something awful might happen: 0 = Not at all Total VON-7 score (0-4 normal; 5-9 mild; 10-14 moderate; 15-21 severe): 1 Source: Developed by Drs. Israel Gutierrez, Cayla Enriquez, Valdez Cowart and colleagues, with an educational joão from [employer]. VON-7 Assessment Billing VON-7 Assessment Tool: VON-7 Assessment 36856 Physical exam (Primary Care) Vital Signs: Last Vital Signs Pulse 62 07/06/24 12:58 BP 134/70 07/06/24 12:58 Pulse Ox 98 07/06/24 12:58 Oxygen Delivery Method Room Air 07/06/24 12:58 BMI result Body Mass Index 33.5 Tobacco/Smoking Status: Tobacco use Status Tobacco use date assessed 07/06/24 07/06/24 13:00 Patient Tobacco Use Status Former Tobacco user (quit 50 07/06/24 13:00 years ago ) e-Cigarette/Vaping Use Never Used 07/06/24 13:00 Thrive Assessment: Date of Thrive Assessment Date Thrive assessed 07/06/24 07/06/24 13:00 Currently or been in a relationship where the following occur: No concerns reported Coding Level of Care Code Est Pt Level 4 (85160) Complex EM visit Add On G2211 Diagnoses Hair loss L65.9 Additional Codes VON-7 Assessment Billing - VON-7 Assessment Tool: VON-7 Assessment 18650 ([id number]) Assessment & Plan Assessment & Plan (1) Hair loss: Code(s): L65.9 - Nonscarring hair loss, unspecified Category: Medical Plan History - The patient is a 73-year-old female presenting with bereavement. - The patient reported the loss of her brother and grandson who in May. - Her grandson's was accidental, occurred when he was hit by a train. - The patient's grandson had lived with her since he was 13 years old. - This was emotionally challenging for the patient and other family members. - The patient reported experiencing alopecia. - The onset of hair loss was not specified, but persistent hair loss was noted. - The patient expressed interest in consulting a svp operations regarding treatment options. - The patient reported insomnia. - The patient has been unable to sleep well. - Zolpidem prescription was discussed, but the patient has not yet started taking it. - The patient reported a history of depression. - The patient described her grandson as having been depressed, denying any notion of suicide. - The emotional impact of these personal losses has been significant and affected her well-being. - Bp is stable - Restless legs stable with med due for labs today Problem List - Bereavement - Alopecia - Insomnia - Depression - restless leg - due for labs - obesity Patient Instructions - Continue taking prescribed medications as discussed. - Complete laboratory tests as soon as possible; the tests do not require fasting. - Start taking Zolpidem as prescribed to help with insomnia. - Consider scheduling an appointment with a svp operations for treatment options regarding hair loss. - Report any worsening symptoms or new concerns. Orders: Referrals Dermatology Referral L65.9 - Nonscarring hair loss, unspecified
--- OUTSIDE RECORDS SUMMARY | 2024-07-06 13:29 | XMS_ITS | Continuity of Care Document ---
Author Name [facility] Organization [facility] Care Team Providers Care Mannequin Sander And Finisher Name Role Phone [facility] Unavailable Unavailable Problems Combined list of problems [...] HCS HC PRO PHONE CALL 5-10 MIN [id number] Diagnos is: ICD-10- CM Z71.0 Prsn encntr hlth serv to consult on behalf of another person ANAND,RU TH E 01/20 [facility]ESS[facility] [id number] Diagnos is: ICD-10- CM Z71.0 Prsn encntr hlth serv to consult on behalf of another person ANAND,RU TH E 02/02 [facility] HC PRO PHONE CALL 5-10 MIN [id number] Diagnos is: ICD-10- CM Z71.0 Prsn encntr hlth serv to consult on behalf of another person ANAND,RU TH E 05/17 [facility] ASSMT/REAS SESSMENT [id number] Diagnos is: ICD-10- CM Z71.0 Prsn encntr hlth serv to consult on behalf of another person ANAND,RU TH E 05/25 [facility] ASSMT/REAS SESSMENT [id number] Diagnos is: ICD-10- CM Z71.0 Prsn encntr hlth serv to consult on behalf of another person ANAND,RU TH E 10/03 [facility] Outpatient Encounter [id number] 11/01 [facility] ASSMT/REAS SESSMENT [id number] Diagnos is: ICD-10- CM Z71.0 Prsn encntr hlth serv to consult on behalf of another person ANAND,RU E 01/12 [facility] PH1 ASSMT&MGMT NQHP 5-10 [id number] Diagnos is: ICD-10- CM Z71.0 Prsn encntr hlth serv to consult on behalf of another person ANAND,RU TH E 05/14 [facility] Out[facility] Encounter [id number] 05/14 [facility]
--- OUTSIDE RECORDS SUMMARY | 2024-07-06 13:29 | XMS_ITS ---
Author Name [facility] Address [address] [place] [address] Selected Encounter This section includes the information on record at OR for the Encounter. Date/Time Encounter Type Encounter Description Reason Pro vider Source May 14, 2024 12:40 PM Outpatient Encounter ADMIN PAT ACTIVTIES (MASNONCT) IHE Encounter Template Text not used by [facility] Encounter Notes: All associated encounter notes This section contains the clinical notes associated to the Encounter. Date/Time Encounter Note(s) Provider Source May 14, 2024 12:40 PM CAREGIVER CERTIFIC ATE: LOCAL TITLE: CSP PCA[facility] CONTINUED ELIGIBILITY NOTE STANDARD TITLE: CAREGIVER CERTIFICATE DATE OF NOTE: MAY 14, 2024@12:40 ENTRY DATE: MAY 14, 2024@12:40:29 AUTHOR: KANU ANAND EXP COSIGNER: URGENCY: STATUS: COMPLETED Caregiver Support Program Continued Eligibility Note for Program of Comprehensive Assistance for Family Caregivers (PCAFC) Continued eligibility determination date: 05/14/2024 Determination: Level Two The individual continuing in PCAFC is the Primary Family Caregiver. Name of Odell: Brett Lopez The eligible Odell is in need of personal care services due to an inability to perform an Activity of Daily Living. Date of verbal notification of determination: 05/14/2024 /grzegorz SEE LCSW CAREGIVER SUPPORT SAW BOSS Signed: 05/14/2024 12:41 KANU ANAND [place] [facility] [place] [facility]
--- OUTSIDE RECORDS SUMMARY | 2024-07-06 13:29 | XMS_ITS ---
Author Name [facility] [facility] [facility] [place] Address [address] [place] [address] Selected Encounter This section includes the information on record at [place] for the Encounter. Date/Time Encounter Type Encounter [...] KANU ANAND EXP COSIGNER: URGENCY: STATUS: COMPLETED Therapist Respiratory received notification from ELSA (caregiver support database) that the [facility] mailed something to caregiver using USPS and it was returned. They asked that this caregiver's address is confirmed. On this day, typewriter aligner received confirmation from this caregiver who confirmed her address has not changed and she continues to receive mail at the present location: [place] [address] ELSA notified/ben completed /cesar/ KANU SEE LCSW CAREGIVER SUPPORT SR. DIRECTOR PRODUCT MANAGEMENT Signed: 11/02/2023 14:22 KANU ANAND [place] [facility] [place] [facility]
== END 2024-07-06 13:17 | disposition home or self-care (01) ==
LOC: HO.HMCC 12:57
PROVIDERS: PCP Internal Medicine; Visit Provider Internal Medicine
DX: L65.9 Nonscarring hair loss, unspecified (principal)

== ENCOUNTER → 2024-07-06 12:56 | Outpatient (BNVA) | payer MEDICARE, SELFPAY | PROVIDERS: PCP Internal Medicine; Visit Provider Internal Medicine | DX: L65.9 Nonscarring hair loss, unspecified (principal); G47.00 Insomnia, unspecified; Z63.4 Disappearance and death of family member | CPT/HCPCS: 96127; 99212 ==

== ENCOUNTER 2024-08-06 10:26 | Outpatient (REF) | payer MEDICARE, SELFPAY ==
--- OUTSIDE RECORDS SUMMARY | 2024-08-06 11:01 | XMS_ITS | Continuity of Care Document ---
Author Name [facility] Organization [facility] Care Team Providers Care Physical Therapy Director Name Role Phone [facility] Unavailable Unavailable Problems Combined list of problems [...] HCS HC PRO PHONE CALL 5-10 MIN [id number] Diagnos is: ICD-10- CM Z71.0 Prsn encntr hlth serv to consult on behalf of another person ANAND,RU TH E 01/20 [facility] [id number] Diagnos is: ICD-10- CM Z71.0 Prsn encntr hlth serv to consult on behalf of another person ANAND,RU TH E 02/02 [facility] HC PRO PHONE CALL 5-10 MIN [id number] Diagnos is: ICD-10- CM Z71.0 Prsn encntr hlth serv to consult on behalf of another person ANAND,RU TH E 05/17 [facility] ASSMT/REAS SESSMENT [id number] Diagnos is: ICD-10- CM Z71.0 Prsn encntr hlth serv to consult on behalf of another person ANAND,RU TH E 05/25 [facility] ASSMT/REAS SESSMENT [id number] Diagnos is: ICD-10- CM Z71.0 Prsn encntr hlth serv to consult on behalf of another person ANAND,RU TH E 10/03 [facility] Outpatient Encounter [id number] 11/01 [facility] [place] ASSMT/REAS SESSMENT [id number] Diagnos is: ICD-10- CM Z71.0 Prsn encntr hlth serv to consult on behalf of another person ANAND,RU E 01/12 [facility] PH1 ASSMT&MGMT NQHP 5-10 [id number] Diagnos is: ICD-10- CM Z71.0 Prsn encntr hlth serv to consult on behalf of another person ANAND,RU TH E 05/14 [facility] Outpatient Encounter [id number] 05/14 [facility]
[2024-08-06 13:01] LABS: MANUAL DIFF FLAG NO
[2024-08-06 13:24] LABS: Basophils Percent Auto 0.4 % (0-2); Eosinophils Absolute Auto 0.1 X10*3/uL (0.0-0.4); Eosinophils Percent Auto 1.3 % (0-4); Hematocrit 38.1 % (37.0-47.0); Hemoglobin 12.7 g/dl (12.0-16.0); Imm Gran Abs Auto 0.03 X10*3/uL (0.00-0.03); Imm Gran Pct Auto 0.4 % (0.0-0.4); Lymphocytes Absolute Auto 1.8 X10*3/uL (1.2-4.9); Lymphocytes Percent Auto 23.4 % (20-40); Mean Corpuscular HGB Conc 33.3 g/dl (31.0-35.0); Mean Corpuscular Hemoglobin 30.5 pg (27.0-33.0); Mean Corpuscular Volume 91.6 fL (80.0-98.0); Mean Platelet Volume 11.4 fL (9.4-12.3); Monocytes Absolute Auto 0.6 X10*3/uL (0.1-1.2); Monocytes Percent Auto 7.3 % (2-11); Neutrophils Absolute Auto 5.2 x10*3/uL (2.0-8.3); Neutrophils Percent Auto 67.2 % (45-73); Platelet Count 212 X10*3/uL (160-400); Red Blood Count 4.16 X10*6/uL (4.20-5.50); Red Cell Distribution Width 13.5 % (11.0-16.0); White Blood Count 7.7 X10*3/uL (4.8-10.8)
[2024-08-06 13:33] LABS: Alanine Aminotransferase 28 U/L (0-31); Albumin Level 4.4 g/dL (3.5-5.0); Alkaline Phosphatase 46 U/L (39-117); Anion Gap 13 (12-20); Aspartate Amino Transferase 27 U/L (5-31); Bilirubin Total 1.1 mg/dL (0.0-1.0); Blood Urea Nitrogen 11 mg/dL (9-16); Calcium 9.4 mg/dL (8.4-10.2); Carbon Dioxide 26 mmol/L (22-29); Chloride 104 mmol/L (96-108); Estimated Glomerular Filt Rate > 60; Glucose Random 107 mg/dL (60-115); Potassium 3.5 mmol/L (3.3-5.1); Sodium 139 mmol/L (135-145); Total Protein 7.2 g/dL (6.5-8.0)
[2024-08-07 09:58] LABS: LDL Cholesterol Direct 76 mg/dL (<100)
[2024-08-16 12:40] LABS: Vitamin D 25-OH, D2 <4; Vitamin D 25-OH, D3 7
[2024-08-16 12:43] LABS: Vitamin D 25-OH, Total 7
== END 2024-08-06 10:27 | disposition home or self-care (01) ==
LOC: HO.HMGCLDS 10:26
PROVIDERS: PCP Internal Medicine; Visit Provider Internal Medicine
DX: M85.88 Other specified disorders of bone density and structure, other site (principal); E66.09 Other obesity due to excess calories; Z68.34 Body mass index [BMI] 34.0-34.9, adult; E78.9 Disorder of lipoprotein metabolism, unspecified; I10 Essential (primary) hypertension
CPT/HCPCS: 36415; 80053; 82306; 83721; 85025

== ENCOUNTER → 2024-09-06 08:37 | Outpatient (BNVA) | payer MEDICARE, SELFPAY | PROVIDERS: PCP Internal Medicine; Visit Provider Internal Medicine | DX: Z13.89 Encounter for screening for other disorder (principal) ==

== ENCOUNTER 2024-09-20 08:31 | Outpatient (AMB) | payer MEDICARE, SELFPAY ==
--- NOTE | 2024-09-20 09:34 | A.OFFPC_ITS ---
Intake Visit Reasons: Meds review Allergies No Known Allergies (No Known Allergies*) Allergy (Verified 07/06/24 12:59) Medication List - Last Reconciled 09/20/24 by Murali Jaimes MD atenolol 100 mg PO DAILY 90 days escitalopram oxalate (Lexapro) 10 mg PO DAILY losartan-hydrochlorothiazide 100-25 mg 1 tab PO DAILY pramipexole 0.5 mg PO BEDTIME simvastatin 20 mg PO BEDTIME zolpidem 5 mg PO BEDTIME PRN 30 days Tobacco use date assessed: 07/06/24 Dental Screening Dental Screen Date: 07/06/24 [facility] Meds review HPI Details History - The patient is a 73-year-old female pr esenting with a request for medication review and refill. - Previous appointment took place on Jun. - Current medications include atenolol, Lexapro, losartan, hydrochlorothiazide, pramipexole, simvastatin, and Zolpidem. - The patient reports running out of Zol pidem and mentions its importance due to difficulty sleeping without it. - Blood pressure was last measured at [facility] irregularly with a reading of approximately 125/80, indicating well-controlled blood pressure. - The patient reports feeling better in terms of mood, anxiety, and depression since the last visit. Medical History: - Hypertension - Depression - Anxiety - Insomnia - Hyperlipidemia - Parkinson's disease Medications: - Atenolol for hypertension - Lexapro for depression and anxiety - Losartan for hypertension - Hydrochlorothiazide for hypertension - Pramipexole for Parkinson's disease - Simvastatin for hyperlipidemia - Zolpidem for insomnia Diagnostic Results: Labs: - Metabolic profile (completed in July): Normal - Complete Blood Count (CBC): Normal Problem List - Hypertension - Depression - Anxiety - Insomnia - Hyperlipidemia Patient Instructions - Continue taking your medications as pr escribed. - You will receive a couple of refills f or your sleeping medication. - Take blood pressure readings more regu larly at home if possible. - Attend the next scheduled in-person ap pointment for further evaluation. in 3 M Review of Systems - General: No fever no chills - Neurological: No headaches no dizziness - Ear nose throat: No sore throat no hearing difficulty no ear pain - Cardiovascular: No syncope, no chest pain, no palpitations - Gastrointestinal: No nausea vomiting or diarrhea [facility] Medical History Difficulty sleeping Restless leg syndrome Lipid disorder Hypertension, essential Surgical History History of colonoscopy History of surgery History of appendectomy History of hysterectomy Family History Father HTN (hypertension) Cancer Mother HTN (hypertension) Bone cancer Brother Skin cancer Maternal Grandfather No problems noted. Maternal Grandmother No problems noted. Paternal Grandfather No problems noted. Paternal Grandmother No problems noted. Sister No problems noted. Son No problems noted. Social History Housing: Condominium Patient Tobacco Use Status: Former Tobacco user (quit 50 years ago ) Years Smoked: 1 year e-Cigarette/Vaping Use: Never Used service: No Current occupational status: retired Cognitive needs: No Hearing needs: No Vision needs: No Questionnaire Thrive Questionnaire Date Thrive assessed: 05/01/24 VON-7 AMB Questionnaire VON-7 Date VON - 7 assessed: 07/06/24 Source: Developed by Drs. Israel Gutierrez, Cayla Enriquez, Valdez Cowart and colleagues, with an educational joão from [employer]. Physical exam (Primary Care) Tobacco/Smoking Status: Tobacco use Status Tobacco use date assessed 07/06/24 09/20/24 09:34 Patient Tobacco Use Status Former Tobacco user (quit 51 09/20/24 09:34 years ago ) e-Cigarette/Vaping Use Never Used 09/20/24 09:34 Thrive Assessment: Date of Thrive Assessment Date Thrive assessed 05/01/24 09/20/24 09:34 Telehealth Telehealth Telehealth Platform: [facility] Location of provider rendering services: practice address Location of patient: address on file Patient Identification confirmed using: Name, : Yes Telehealth method: video Patient verbally consented to treatment: Yes Patient verbally consented to billing insurance company: Yes Patient informed of any privacy concerns related to visit: Yes Minutes spent on Phone/Video with Pt.: 13 Coding Level of Care Code Tele Est Pt Level 3 (61197) Diagnoses Hypertension, essential I10 Lipid disorder E78.9 Restless leg syndrome G25.81 Difficulty sleeping G47.9 Anxiety, generalized F41.1 Recurrent major depressive disorder, in partial remission F33.41 Active/Remission status: in partial remission Assessment & Plan Assessment & Plan (1) Hypertension, essential: Code(s): I10 - Essential (primary) hypertension Category: Medical (2) Lipid disorder: Code(s): E78.9 - Disorder of lipoprotein metabolism, unspecified Category: Medical (3) Restless leg syndrome: Code(s): G25.81 - Restless legs syndrome Category: Medical (4) Difficulty sleeping: Code(s): G47.9 - Sleep disorder, unspecified Category: Medical (5) Anxiety, generalized: Code(s): F41.1 - Generalized anxiety disorder Category: Medical (6) Major depression, recurrent: Code(s): F33.9 - Major depressive disorder, recurrent, unspecified Category: Medical Qualifiers: Active/Remission status: in partial remission Qualified Code(s): F33.41 - Major depressive disorder, recurrent, in partial remission Plan History - The patient is a 73-year-old female presenting with a request for medication review and refill. - Previous appointment took place on July 06. - Current medications include atenolol, Lexapro, losartan, hydrochlorothiazide, pramipexole, simvastatin, and Zolpidem. - The patient reports running out of Zolpidem and mentions its importance due to difficulty sleeping without it. - Blood pressure was last measured at home irregularly with a reading of a pproximately 125/80, indicating well-controlled blood pressure. - The patient reports feeling better in terms of mood, anxiety, and depression since the last visit. Medical History: - Hypertension - Depression - Anxiety - Insomnia - Hyperlipidemia - Parkinson's disease Medications: - Atenolol for hypertension - Lexapro for depression and anxiety - Losartan for hypertension - Hydrochlorothiazide for hypertension - Pramipexole for Parkinson's disease - Simvastatin for hyperlipidemia - Zolpidem for insomnia Diagnostic Results: Labs: - Metabolic profile (completed in July): Normal - Complete Blood Count (CBC): Normal Problem List - Hypertension - Depression - Anxiety - Insomnia - Hyperlipidemia Patient Instructions - Continue taking your medications as prescribed. - You will receive a couple of refills for your sleeping medication. - Take blood pressure readings more regularly at home if possible. - Attend the next scheduled in-person appointment for further evaluation. in 3 M Medications: Refilled zolpidem 5 mg PO BEDTIME PRN 30 tabs 2RF insomnia 30 days
== END 2024-09-20 09:41 | disposition home or self-care (01) ==
LOC: HO.HMCC 08:31
PROVIDERS: PCP Internal Medicine; Visit Provider Internal Medicine
DX: I10 Essential (primary) hypertension (principal); E78.9 Disorder of lipoprotein metabolism, unspecified; G25.81 Restless legs syndrome; G47.9 Sleep disorder, unspecified; F41.1 Generalized anxiety disorder; F33.41 Major depressive disorder, recurrent, in partial remission

== ENCOUNTER 2025-01-04 08:55 | Outpatient (REF) | payer MEDICARE, SELFPAY ==
[2025-01-04 10:01] LABS: MANUAL DIFF FLAG NO
[2025-01-04 10:23] LABS: Hematocrit 38.4 % (37.0-47.0); Hemoglobin 12.7 g/dl (12.0-16.0); Imm Gran Abs Auto 0.02 X10*3/uL (0.00-0.03); Imm Gran Pct Auto 0.3 % (0.0-0.4); Lymphocytes Absolute Auto 1.5 X10*3/uL (1.2-4.9); Mean Corpuscular HGB Conc 33.1 g/dl (31.0-35.0); Mean Corpuscular Hemoglobin 30.3 pg (27.0-33.0); Mean Corpuscular Volume 91.6 fL (80.0-98.0); NRBC Abs Auto 0.000 X10*3/uL (0.0-0.012); NRBC Pct Auto 0.0 /100WBC (0.0-0.2); Platelet Count 183 X10*3/uL (160-400); Red Blood Count 4.19 X10*6/uL (4.20-5.50); White Blood Count 5.8 X10*3/uL (4.8-10.8)
[2025-01-04 12:38] LABS: Alanine Aminotransferase 30 U/L (0-31); Albumin Level 4.7 g/dL (3.5-5.0); Alkaline Phosphatase 42 U/L (39-117); Anion Gap 11 (12-20); Aspartate Amino Transferase 22 U/L (5-31); Blood Urea Nitrogen 27 mg/dL (9-16); Calcium 9.7 mg/dL (8.4-10.2); Carbon Dioxide 25 mmol/L (22-29); Chloride 111 mmol/L (96-108); Cholesterol 152 mg/dL (<200); Estimated Glomerular Filt Rate > 60; HDL Cholesterol 44 mg/dL (>40); Potassium 3.9 mmol/L (3.3-5.1); Sodium 143 mmol/L (135-145); Total Protein 7.3 g/dL (6.5-8.0); Triglycerides 178 mg/dL (<150)
== END 2025-01-04 08:56 | disposition home or self-care (01) ==
LOC: HO.HMGCLDS 08:55
PROVIDERS: PCP Internal Medicine; Visit Provider Internal Medicine
DX: I10 Essential (primary) hypertension (principal); E78.9 Disorder of lipoprotein metabolism, unspecified
CPT/HCPCS: 36415; 80053; 80061; 85025

== ENCOUNTER 2025-01-30 07:53 | Outpatient (AMB) | payer MEDICARE, SELFPAY ==
[2025-01-30 08:04] VITALS: BP 118/80; PULSE 68; O2SAT 98; BMI 31.9
--- NOTE | 2025-01-30 08:04 | A.OFFPC_ITS ---
Vital Signs 01/30/25 08:04 Height 5 ft 4 in Weight 186 lb BMI 31.9 BP 118/80 Blood Pressure Location Lt brachial Position Sitting Pulse 68 Pulse Source Pulse Oximeter Pulse Oximetry (%) 98 Intake Visit Reasons: Reschedule Annual PE - see comments Allergies No Known Allergies (No Known Allergies*) Allergy (Verified 01/30/25 08:05) Medication List - Last Reconciled 01/30/25 by Murali Jaimes MD atenolol 100 mg PO DAILY 90 days escitalopram oxalate (Lexapro) 10 mg PO DAILY losartan-hydrochlorothiazide 100-25 mg 1 tab PO DAILY pramipexole 0.5 mg PO BEDTIME simvastatin 20 mg PO BEDTIME zolpidem 5 mg PO BEDTIME PRN 30 days Tobacco use date assessed: 07/06/24 Fall risk assessment: No Falls in past year Last assessed Fall Risk: 01/30/25 Dental Screening Dental Screen Date: 07/06/24 HPI Reschedule Annual PE - see comments HPI Details History of Present Illness The patient is a 74-year-old female presenting for a physical exam visit and to discuss new onset of hand numbness at night. Bilateral carpal tunnel syndrome: - The patient reports that for the past three months, her hands go numb at night, associated with pain that wakes her from sleep. - The symptoms occur in both hands, but not at the same time, and are described as tingling and numbness. - She denies any associated weakness or dropping objects and notes the symptoms occur only at night. - She has a history of carpal tunnel syn drome years ago which resolved with the use of a splint. Back pain: - The patient has a history of back issu es and reports she recently started wearing a brace for back pain.. 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 Osteopenia: - The patient was diagnosed with osteope katty following a bone density scan in 2020. - She has not had a follow-up scan in a long time and is due for one. Prediabetes: - Blood tests from December showed a fast ing blood sugar of 100 mg/dL, indicating prediabetes. Health Maintenance: - The patient is due for a mammogram, wh ich was scheduled for August of this year but was canceled and needs to be rescheduled. - She states she is finished with colono scopies. - Her last tetanus immunization was in , and she is due for a tetanus and pneumonia vaccine. - She initially declined the flu vaccine but will get the senior dose from a pharmacy. 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 - Her partner is not doing well, which l ed to her canceling a mammogram appointment. - She lives in [place]. Health Maintenance - Mammogram: Due; the patient was advise d to reschedule her canceled appointment. - Bone Density Scan: Due; her last scan was in 2020 and showed osteopenia. - Colonoscopy: The patient states she is no longer undergoing these screenings. - Immunizations: Advised and agreed to r eceive Tetanus and Prevnar 20 vaccines today. - Flu Vaccine: Patient will obtain the s enior dose from a pharmacy. - Nutrition: Advised to take a multivita min supplement. - Skin Check: Advised to see a dermatolo gist for a skin check due to having many moles. Medications - Atenolol 100 mg - Lexapro - Losartan - Hydrochlorothiazide - Pramipexole - Simvastatin - Zolpidem: Discontinued as it was ineff ective. 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 Diagnostic results - Labs (December): Kidney functions are o namrata, fasting glucose was 100 mg/dL, liver enzymes are okay, and LDL cholesterol is 73 mg/dL. - Bone Density Scan (2020): Showed osteo penia. Patient Instructions - Use the carpal tunnel splint you were given at night to help with hand numbness and pain. - If the hand symptoms do not improve af ter a few weeks, call the office to schedule a test. - Schedule your mammogram and bone densi ty scan. - You will receive a tetanus shot and a pneumonia shot (Prevnar 20) today. - You should also get a high-dose flu sh ot from a local pharmacy. - Start taking a daily multivitamin. - You are being referred to a skin docmolly mackey (mold machine operator) for a full body skin check. - Schedule a follow-up appointment in fo ur months. Review of Systems - General: No fever no chills - Neurological: No headaches no dizzin ess - Ear nose throat: No sore throat no hearing difficulty no ear pain - Cardiovascular: No syncope, no chest pain, no palpitations - Gastrointestinal: No nausea vomiting or diarrhea Physical Exam General: Cooperative, healthy appearing, comfortable, no acute distress Orientation: Patient oriented x3 Head: Normal to inspection Ears: Within normal limit visually Nose: Normal external nose present Face and sinus: Normal facial exam Eyes: Appearance normal, extraocular movement intact pupils reactive Neck: Normal visual inspection and supple Respiratory: Normal respiratory effort and able to speak in complete sentences. Clear to auscultation, no stridor Cardiovascular: S1 and S2 RRR GI: Normal to inspection. Soft to palpation and nontender Skin: Turgor normal, no acute findings Neuro: Patient oriented x3, motor sensory intact, balance intact, tandem pass Extremities: Normal to inspection, range of motion intact in both shoulders and knees. . [facility] Medical History Difficulty sleeping Restless leg syndrome Lipid disorder Hypertension, essential Surgical History History of colonoscopy History of surgery History of appendectomy History of hysterectomy Family History Father HTN (hypertension) Cancer Mother HTN (hypertension) Bone cancer Brother Skin cancer Maternal Grandfather No problems noted. Maternal Grandmother No problems noted. Paternal Grandfather No problems noted. Paternal Grandmother No problems noted. Sister No problems noted. Son No problems noted. Social History Housing: Condominium Patient Tobacco Use Status: Former Tobacco user (quit 50 years ago ) Years Smoked: 1 year e-Cigarette/Vaping Use: Never Used service: No Current occupational status: retired Cognitive needs: No Hearing needs: No Vision needs: No Questionnaire Thrive Questionnaire Date Thrive assessed: 05/01/24 I am a: Patient What is your living situation today?: I have a steady place to live Within the past 12 months, did the food you bought not last and you didn't have the money to get more?: Never true Within the past 12 months, did you worry whether your food would run out before you got money to buy more?: Never true Do you have trouble paying for medicines?: No Do you have trouble getting transportation to medical appointments?: No Do you have trouble paying your heating and electricity bill?: No Do you have trouble taking care of your child, family member or friend?: No Do you have trouble with day-to-day activities such as bathing, preparing meals, shopping, managing finances, etc.?: No Are you currently unemployed and looking for a job?: No Are you interested in more education?: No Please select the resources that you would like help with: None Currently or been in a relationship where the following occur: No concerns reported THRIVE Score: 0 VON-7 AMB Questionnaire VON-7 Date VON - 7 assessed: 07/06/24 Source: Developed by Drs. Israel Gutierrez, Cayla Enriquez, Valdez Cowart and colleagues, with an educational joão from [employer] ([employer]). Physical exam (Primary Care) Vital Signs: Last Vital Signs Pulse 68 01/30/25 08:04 BP 118/80 01/30/25 08:04 Pulse Ox 98 01/30/25 08:04 BMI result Body Mass Index 31.9 Tobacco/Smoking Status: Tobacco use Status Tobacco use date assessed 07/06/24 01/30/25 08:08 Patient Tobacco Use Status Former Tobacco user (quit 50 01/30/25 08:08 years ago ) e-Cigarette/Vaping Use Never Used 01/30/25 08:08 Thrive Assessment: Date of Thrive Assessment Date Thrive assessed 05/01/24 01/30/25 08:08 Currently or been in a relationship where the following occur: No concerns reported Immunizations pneumoc 20-alta conj-dip cr(PF) 0.5 mL IM syringe Performing Provider: Murali Jaimes MD Performing Location: [facility] Administered by: Dawit Ojeda CMA on 01/30/25 08:53 Dose Route Admin Location Dispensed Lot Number Expiration Date [facility] Higher Level Teaching Assistant 0.5 mL IM Right Deltoid 0.5 mL [id number] 12/08/25 0945-6721-35 [employer] Total Dispensed Waste 0.5 mL 0 % VIS Given Date VIS Provided VIS Publication Date 01/30/25 Single Vaccine 24 Eligibility Eligibility Date Funding Source Not VFC Eligible 01/30/25 Private Boostrix Tdap 2.5 Lf unit-8 mcg-5 Lf/0.5 mL intramuscular syringe Performing Provider: Murali Jaimes MD Performing Location: [facility] Administered by: Dawit Ojeda CMA on 01/30/25 08:53 Dose Route Admin Location Dispensed Lot Number Expiration Date [facility] Higher Level Teaching Assistant 0.5 mL IM Left Deltoid 0.5 mL [id number] 01/11/27 97622-612-66 [employer] Total Dispensed Waste 0.5 mL 0 % VIS Given Date VIS Provided VIS Publication Date 01/30/25 Single Vaccine 20 Eligibility Eligibility Date Funding Source Not VFC Eligible 01/30/25 Private Coding Level of Care Code Est Pt Level 4 (82569) Est Pt Prev Care >65y(38633) Diagnoses Encounter for general adult medical examination with abnormal findings Z00.01 Restless leg syndrome G25.81 Lipid disorder E78.9 Hypertension, essential I10 Recurrent major depressive disorder, in partial remission F33.41 Active/Remission status: in partial remission Anxiety, generalized F41.1 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 Osteopenia location: lumbar spine Class 1 obesity due to excess calories with serious comorbidity and body mass index (BMI) of 34.0 to 34.9 in adult E66.09; Z68.34 Body mass index: BMI 34.0-34.9 Obesity classification: adult class 1 (BMI 30 - 34.9) Serious obesity comorbidity presence: with serious comorbidity Carpal tunnel syndrome, bilateral G56.03 Paresthesia of both hands R20.2 Assessment & Plan Assessment & Plan (1) Encounter for general adult medical examination with abnormal findings: Code(s): Z00.01 - Encounter for general adult medical examination with abnormal findings Category: Medical (2) Restless leg syndrome: Code(s): G25.81 - Restless legs syndrome Category: Medical (3) Lipid disorder: Code(s): E78.9 - Disorder of lipoprotein metabolism, unspecified Category: Medical (4) Hypertension, essential: Code(s): I10 - Essential (primary) hypertension Category: Medical (5) Major depression, recurrent: Code(s): F33.9 - Major depressive disorder, recurrent, unspecified Category: Medical Qualifiers: Active/Remission status: in partial remission Qualified Code(s): F33.41 - Major depressive disorder, recurrent, in partial remission (6) Anxiety, generalized: Code(s): F41.1 - Generalized anxiety disorder Category: Medical (7) Osteopenia: Code(s): M85.80 - Other specified disorders of bone density and structure, unspecified site Category: Medical Qualifiers: Osteopenia location: lumbar spine Qualified Code(s): M85.88 - Other specified disorders of bone density and structure, other site (8) Obesity due to excess calories: Code(s): E66.09 - Other obesity due to excess calories Category: Medical Qualifiers: Body mass index: BMI 34.0-34.9 Obesity classification: adult class 1 (BMI 30 - 34.9) Serious obesity comorbidity presence: with serious comorbidity Qualified Code(s): E66.09 - Other obesity due to excess calories; Z68.34 - Body mass index [BMI] 34.0-34.9, adult (9) Carpal tunnel syndrome, bilateral: Code(s): G56.03 - Carpal tunnel syndrome, bilateral upper limbs Category: Medical (10) Paresthesia of both hands: Code(s): R20.2 - Paresthesia of skin Category: Medical Plan Bilateral carpal tunnel syndrome: - The patient reports that for the past three months, her hands go numb at night, associated with pain that wakes her from sleep. - The symptoms occur in both hands, but not at the same time, and are described as tingling and numbness. - She denies any associated weakness or dropping objects and notes the symptoms occur only at night. - She has a history of carpal tunnel syndrome years ago which resolved with the use of a splint. Back pain: - The patient has a history of back issues and reports she recently started wearing a brace for back pain.. 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 Osteopenia: - The patient was diagnosed with osteopenia following a bone density scan in 2020. - She has not had a follow-up scan in a long time and is due for one. Prediabetes: - Blood tests from December showed a fasting blood sugar of 100 mg/dL, indicating prediabetes. Health Maintenance: - The patient is due for a mammogram, which was scheduled for August of this year but was canceled and needs to be rescheduled. - She states she is finished with colonoscopies. - Her last tetanus immunization was in 2003, and she is due for a tetanus and pneumonia vaccine. - She initially declined the flu vaccine but will get the senior dose from a pharmacy. 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 - Her partner is not doing well, which led to her canceling a mammogram appointment. - She lives in [place]. Health Maintenance - Mammogram: Due; the patient was advised to reschedule her canceled appointment. - Bone Density Scan: Due; her last scan was in 2020 and showed osteopenia. - Colonoscopy: The patient states she is no longer undergoing these screenings. - Immunizations: Advised and agreed to receive Tetanus and Prevnar 20 vaccines today. - Flu Vaccine: Patient will obtain the senior dose from a pharmacy. - Nutrition: Advised to take a multivitamin supplement. - Skin Check: Advised to see a mold machine operator for a skin check due to having many moles. Medications - Atenolol 100 mg - Lexapro - Losartan - Hydrochlorothiazide - Pramipexole - Simvastatin - Zolpidem: Discontinued as it was ineffective. 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 Diagnostic results - Labs (December): Kidney functions are okay, fasting glucose was 100 mg/dL, liver enzymes are okay, and LDL cholesterol is 73 mg/dL. - Bone Density Scan (2020): Showed osteopenia. Patient Instructions - Use the carpal tunnel splint you were given at night to help with hand numbness and pain. - If the hand symptoms do not improve after a few weeks, call the office to schedule a test. - Schedule your mammogram and bone density scan. - You will receive a tetanus shot and a pneumonia shot (Prevnar 20) today. - You should also get a high-dose flu shot from a local pharmacy. - Start taking a daily multivitamin. - You are being referred to a skin doctor (mold machine operator) for a full body skin check. - Schedule a follow-up appointment in four months. . Orders: Orders MM tomosynthesis screening BI Today M85.88 - Other specified disorders of bone density and structure, other site, Z12.31 - Encounter for screening mammogram for malignant neoplasm of breast XR DEXA axial skeleton Today M85.88 - Other specified disorders of bone density and structure, other site, Z12.31 - Encounter for screening mammogram for malignant neoplasm of breast Pneumococcal 20 Immunization Today Z23 - Encounter for immunization TDaP Immunization Today Z23 - Encounter for immunization Medications: Discontinued zolpidem Discontinued Reason: Doctor's Order 5 mg PO BEDTIME 30 days PRN 30 tabs 2RF insomnia
== END 2025-01-30 08:36 | disposition home or self-care (01) ==
LOC: HO.HMCC 07:54
PROVIDERS: PCP Internal Medicine; Visit Provider Internal Medicine
DX: Z00.00 Encounter for general adult medical examination without abnormal findings (principal); G25.81 Restless legs syndrome; E78.9 Disorder of lipoprotein metabolism, unspecified; I10 Essential (primary) hypertension; F33.41 Major depressive disorder, recurrent, in partial remission; F41.1 Generalized anxiety disorder; M85.88 Other specified disorders of bone density and structure, other site; E66.09 Other obesity due to excess calories; Z68.34 Body mass index [BMI] 34.0-34.9, adult; G56.03 Carpal tunnel syndrome, bilateral upper limbs; R20.2 Paresthesia of skin; Z23 Encounter for immunization

== ENCOUNTER → 2025-01-30 07:53 | Outpatient (BNVA) | payer MEDICARE, SELFPAY | PROVIDERS: PCP Internal Medicine; Visit Provider Internal Medicine | DX: Z00.01 Encounter for general adult medical examination with abnormal findings (principal); G25.81 Restless legs syndrome; I10 Essential (primary) hypertension; G56.03 Carpal tunnel syndrome, bilateral upper limbs; M54.9 Dorsalgia, unspecified; R73.03 Prediabetes; F33.41 Major depressive disorder, recurrent, in partial remission; F41.1 Generalized anxiety disorder; M85.88 Other specified disorders of bone density and structure, other site; E66.09 Other obesity due to excess calories; R20.2 Paresthesia of skin; Z23 Encounter for immunization; Z68.34 Body mass index [BMI] 34.0-34.9, adult | CPT/HCPCS: 90471; 90472; 90677; 90715; 99397 ==